=== PATIENT | male | born 1960 | race Caucasian/White ===

== ENCOUNTER 2019-04-19 20:42 | Inpatient (IN) | payer MEDICAID, OTHER ==
[~2019-04-19] VITALS: Ht 170.2 cm; Wt 95.3 kg
[2019-04-19] MEDS ORDERED: CITALOPRAM HBR40 MG PO (20:53)
[2019-04-19] MEDS ORDERED: AMITRIPTYLINE H25 MG PO (20:53)
[2019-04-19] MEDS ORDERED: OMEPRAZOLE20 MG PO (20:54)
[2019-04-19] MEDS ORDERED: LIPITOR40 MG PO (20:54)
[2019-04-19] MEDS ORDERED: GLIPIZIDE ER10 MG PO (20:54)
[2019-04-19] MEDS ORDERED: TYLENOL325 MG PO (20:55)
[2019-04-19] MEDS ORDERED: LEVAQUIN750 MG PO (20:55)
[2019-04-19] MEDS ORDERED: CEFTRIAXONE1 G2 IM (21:59)
--- NOTE | 2019-04-20 00:32 | NUR ---
PT ARRIVED TO THE FLOOR VIA STRETCHER ACCOMPANIED BY [employer] GUARDS X2, PT AOX4, APPROPRIATE, HR TACHY IN 130'S, DR. DONG IN ROOM FOR ASSESSMENT WELL RT IN ROOM. NEBULIZER COMPLETE, PT PLACED ON 2LNC DUE TO O2 SAT OF 91 PER VERBAL ORDER FROM DR. DONG. IV BOLUS OF NS INFUSING PER EMAR, PT AFEBRILE, T: 98.6, PT ORIENTED TO ROOM, REPOSITIONED IN BED FOR COMFORT, CALL LIGHT WITHIN REACH. [employer]I GUARDS REMAIN IN ROOM.
--- NOTE | 2019-04-20 01:15 | NUR ---
REPORT RC'D FROM REGISTERED TRAVEL NURSE NURSE MAYRA. PT IN BED AT [facility] WITH TWO DALLIN GALE. FULL ASSESSMENT TO BE COMPLETED.
--- NOTE | 2019-04-20 01:30 | NUR ---
PT RESTING IN BED. SINUS TACH ON MONITOR. RR 30-40'S, 2L NC, INSPIRATORY AND EXPIRATORY WHEEZE TO BUL AND COARSE, RLL COARSE WITH WHEEZE, LLL DIMINISHED AND TIGHT, NONPRODUCTIVE COUGH. ABD FIRM, BOWEL TONES ACTIVE, DENIES NAUSEA, REPORTS ONGOING DIARRHEA. PT DUE TO VOID. SKIN C/D/I, RESTRAINTS IN PLACE, EOCI GAURDS TO MANAGE. IV SITE PATENT, FLUSHED, WNL, 500 ML BOLUS INFUSING.
--- NOTE | 2019-04-20 02:30 | NUR ---
PT ASSISTED TO BSC. INCREASED WOB AND TACHYPNEA NOTED. PT CONTINUES TO BE DIAPHORETIC. PT ASSSISTED BACK TO BED. LINENS CHANGED. NEW GOWN APPLIED. FAN SET UP AT BEDSIDE. ICE PACK FOR COMFORT. LR INFUSING AT 125.
--- NOTE | 2019-04-20 04:45 | NUR ---
PT C/O OF NEW ONSET OF SHARP LEFT SIDE PAIN. RUB AND HARSH NOISE HEARD TO LLL. WILL DISCUSS FINDINGS WITH PROVIDER.
--- NOTE | 2019-04-20 05:10 | NUR ---
PHONE CALL TO DR. DONG REGARDING LUNG SOUND CHANGE, WOB, AND PAIN. ORDER RC'D FOR MORPHINE 2-4 MG IV Q4P, GIVE TO 2 MG MORPHINE NOW, NORCO 5/325 1 TAB Q4P, READ BACK AND VERIFIED.
--- NOTE | 2019-04-20 05:40 | NUR ---
PT ASSISTED TO BSC, INCREASED WOB AND TACHYPNEA NOTED. PT ASSISTED BACK TO BED AND REPOSTIONED FOR COMFORT. STATES SLIGHT IMPROVMENT WITH MORPHINE DOSE. WILL CONTINUE TO MONITOR.
--- NOTE | 2019-04-20 06:40 | NUR ---
PT STATES MORPHINE DECREASED PAIN FOR SHORT PERIOD OF TIME BUT RETURNED TO 6/10 SHARP LEFT SIDE PAIN. 1 TAB NORCO GIVEN. MEDICATION EDUCATION PROVIDED, PT VERBALIZED UNDERSTANDING, ALL QUESTIONS ANSWERED.
--- NOTE | 2019-04-20 08:46 | NUR ---
PATIENT WAS LAYING IN BED AND COMPLAINING OF LEFT SIDED BACK PAIN. AT 0200 PATIENT RECEIVED 500 MG TYLENOL, AT 0630 PATIENT RECEIVED 5/325 NORCO THAT HELPED PAIN TO A 4/10. PATIENT IS NOW SITTING ON THE EDGE OF THE BED AFTER GOING TO IMAGING DEPARTMENT. PATIENT STATES THAT SITTING UP IN BED HELPS RELIEVE BACK PAIN. GAURDS ARE AT BEDSIDE WITH PATIENT. PATIENT HAS NOT FURTHER NEEDS OR REQUESTS.
--- NOTE | 2019-04-20 09:19 | NUR ---
PATIENT IS SITTING UP AT EDGE OF BED EATING BREAKFAST. PATIENT IS TACHICARDIC AND A LITTLE SHORT OF BREATH BUT OXYGEN SATURATION LEVELS ARE 95%. PATIENT DOES NOT REPORT ANY LIGHTHEADEDNESS OR DIZZINESS. IV FLUIDS RATE WAS REDUCED FROM 125 ML/HR TO 75 ML/HR PER DR. DONG'S ORDERS. PATIENT HAS NO OTHER NEEDS OR REQUESTS.
--- NOTE | 2019-04-20 10:04 | NUR ---
PATIENT USED CALL LIGHT TO GET UP TO BSC. WHEN PATIENT WAS FINISHED, HE POINTED TO THE WIPES BUT WOULD NOT COMMUNICATE WHAT HE WANTED. PATIENT WAS INSTRUCTED TO VERBALIZE WHAT HE WANTED AND TO USE PLEASE AND THANK YOU. PATIENT THEN VERBALLY ASKED FOR THE WIPES AND SAID PLEASE. PATIENT WAS ABLE TO PERFORM PERICARE AND GET BACK INTO BED. ENVIRONMENTAL FIELD TECHNICIAN THEN CAME OUT OF ROOM TO DISCUSS THE INTERACTION. OFFICER SAID SHE WOULD HELP TO MAKE SURE PATIENT VERBALIZES HIS NEEDS. OFFICER SAID SHE WOULD PAY MORE ATTENTION TO THE PATIENT WHILE NURSES AND STAFF ARE IN THE ROOM WITH THE PATIENT.
--- NOTE | 2019-04-20 10:49 | NUR ---
PATIENT COMPLAINED OF LEFT SIDED BACK PAIN. ONE NORCO GIVEN. PATIENT DOES NOT HAVE A FEVER AND IS RESTING IN BED.
--- NOTE | 2019-04-20 11:06 | NUR ---
PATIENT REQUESTED TO USE BSC. PATIENT HAS A SMALL JELLY LIKE YELLOW STOOL. PATIENTIS TACHYCARDIC AND TACHYPNIC. PATIENTS O2 LEVELS ARE 95% ON 2 L O2 VIA OXYMASK. PATIENT IS BACK IN BED AND RESTING.
--- NOTE | 2019-04-20 12:32 | NUR ---
PATIENT ATE ALL OF THE LUNCH AND IS MORE TALKATIVE AND PERSONABLE NOW. PATIENT IS BACK IN BED RESTING. OXYMASK IS IN PLACE AND PATIENT IS GETTING 2L/MIN. PATIENT O2 IS AT 96%.
--- NOTE | 2019-04-20 13:18 | NUR ---
PATIENT HAD A STOOL AND VOID MIXED. TOTAL AMOUNT WAS 300 ML'S. STOOL WAS SMALL BROWN CHUNCKS AND URINE WAS YELLOW.
--- NOTE | 2019-04-20 14:05 | NUR ---
PT RESTING IN BED-O2 MASK ON. PT STATED HE WAS FEEING BETTER NOW WITH MASK. GAVE ENCOURAGEMENT, WILL CONTINUE TO FOLLOW NEEDED. 2 [employer] GUARDS EVER WATCHFUL.
--- NOTE | 2019-04-20 14:21 | NUR ---
PATIENT HAD A MIXED URINATION AND STOOL. STOOL WAS TWO SMALL BROWN CHUNKS. URINE WAS YELLOW. TOTAL AMOUNT 200 ML'S
--- NOTE | 2019-04-20 14:56 | NUR ---
PATIENT STATES PAIN IS DECREASING FROM A 4/10 TO 3/10. THE PATIENT IS SWEATY SO I WIPED OFF THE SWEAT AND PLACED A COOL DAMP RAG ON HIS FOREHEAD. PATIENT HAS NO OTHER NEEDS OR REQUESTS.
--- NOTE | 2019-04-20 15:05 | NUR ---
MED REC COMPLETE
--- NOTE | 2019-04-20 17:22 | NUR ---
PATIENT WAS MINIMALLY INTERACTIVE WITH DR. DONG BUT COMPLAINED OF NOT BEING ABLE TO SLEEP. PATIENT DECLINED TURNING OFF THE TV AND SHUTTING THE BLINDS TO PROMOTE A QUIETER SLEEPING ENVIRONMENT. PATIENT WAS GIVEN ONE UNIT OF INSULIN PER SLIDING SCALE FOR BLOOD GLUCOSE OF 150. PATIENT IS SITTING AT BEDSIDE EATING DINNER WITH GUARDS IN ROOM. PATIENT HAS NO OTHER NEEDS OR REQUESTS.
--- NOTE | 2019-04-20 18:12 | NUR ---
DC'D PATIENT'S IV IN RIGHT WRIST DUE TO CATHETER MIGRATING OUT. PATIENT DIAPHERESIS LOOSENED TAGADERM AND TAPE HOLDING IV IN PLACE.
--- NOTE | 2019-04-20 18:41 | NUR ---
PATIENT WAS COMPLAINING OF 4/10 PAIN. 2 NORCO 5/325 TABS WERE GIVEN TO THE PATIENT. PATIENT HAS NO OTHER NEEDS OR REQUESTS AT THIS TIME.
--- NOTE | 2019-04-20 20:20 | NUR ---
PT WATCHING TV AND TALKING WITH OFFICERS IN ROOM. STATES BACK PAIN 2/10. STATES FEELING BETTER OVERALL. MAIN C/O IS OF NOT BEING ABLE TO SLEEP. WILL BE GIVING HS AMYTRYPTILINE. BREATH TONES ARE SCATTERED EXP WHEEZES AND RHONCHI.
--- NOTE | 2019-04-20 20:57 | NUR ---
BS 147, GIVEN 1 UNIT INSULIN SQ.
--- NOTE | 2019-04-20 22:05 | NUR ---
GIVEN 15MG TORRADOL IV FOR PAIN CONTROL. UP TO BSC TO VOID AND HAVE THICK LIQ STOOL. RR UP TO 30'S WITH EXERTION AND SL LABORED. RECOVERED WHEN BACK IN BED. PT IS JOKING WITH OFFICERS AND STATES PAIN CONTROL IS IMPROVED AND STARTING TO FEEL DROWSY.
--- NOTE | 2019-04-21 00:14 | NUR ---
AWAKE, STATES HASN'T SLEPT. STATES BACK PAIN IS "GOOD". HAS AUDIBLE EXP WHEEZING AND ALSO SCATTERED COARSENESS THROUGHOUT. DENEIES SOB OR NEED FOR NEB TX. CONT TO HAVE [employer] RESTRAINTS IN PLACE, GOOD CMS TO ALL EXTREMITIES. LIGHTS DOWN TO PROMOTE SLEEP.
--- NOTE | 2019-04-21 01:11 | NUR ---
UP TO BSC TO VOID AND HAVE SMALL LIQ BM. STATES NOT REALLY SOB BUT DID NOT RR DID INC TO UPPER 20'S WITH EXERTION. RR BACK TO LOW 20'S WITHIN MINUTES.
--- NOTE | 2019-04-21 02:46 | NUR ---
RESTING, OCC COUGH.
--- NOTE | 2019-04-21 04:38 | NUR ---
CALLED BY PT AT [phone], NEEDING TO GET UP TO BSC. WAS UP FOR ABOUT 20MIN TO VOID AND HAVE SMALL TO MED LIQ BROWN STOOL. BACK TO BED. BREATH TONES ARE DECREASED THROUGHOUT WITH EXP WHEEZES. PT ALSO C/O BACK PAIN 5/10. GIVEN 15MG TORRADOL IV BEFORE NEB TX GIVEN, AFTER NEB COMPLETED PT WAS GIVEN 2 NORCO PO. HAD INCREASED AIR EXCHANGE AFTER NEB AND PT FEELS LIKE HE CAN GET A DEEPER BREATH. TAKING WATER WELL.
--- NOTE | 2019-04-21 05:37 | NUR ---
PT FINALLY SLEEPING. SAT 95%, HR 104.
--- NOTE | 2019-04-21 06:37 | NUR ---
SLEPT LITTLE FINALLY FALLING ASLEEP AROUND 0500. RECIEVED A PRN NEB 0430 FOR DECREASED BREATH TONES, HAD IMPROVED AIR EXCHANGED AFTERWARD. BACK PAIN HAS HAD IMPROVMENT WITH TORRADOL AND NORCO ADMINISTRATION. CONT TO HAVE RESTRIANTS IE ANKLE CUFFS/CHAINS AND WRIST CUFFS AND ABD CHAIN PER EOCI PROTOCOL IN PLACE, GOOD CMS TO HANDS AND FEET.
--- NOTE | 2019-04-21 06:37 | NUR ---
CONT TO SLEEP.
--- NOTE | 2019-04-21 08:29 | NUR ---
PATIENT IS RESTING IN BED CONVERSATING WITH GUARDS. PATIENT STATES PAIN IS 2/10 AND WINCED WHEN STETHASCOPE WAS PLACED ALONG LEFT REAR RIBS. PATIENT DENIES ANY SHORTNESS OF BREATH AND IS INTEREACTIVE WITH STAFF. PATIENT IS UNABLE TO COUGH UP MORE SPUTUM FROM YESTERDAY. USE OF INCENTIVE SPIROMETER AND CORRONET ENCOURAGED. PATIENT HAS BREAKFAST ORDERED AND HAS NO OTHER NEEDS OR REQUESTS.
--- NOTE | 2019-04-21 08:39 | NUR ---
pt sitting up at the bedside eating breakfast at this time. pt able to get up to bedside with no assistance.
--- NOTE | 2019-04-21 09:11 | NUR ---
PT UP AND AMBULATED TO THE BATHROOM WITH STAND BY ASSIST. PT FARIHA ACTIVITY WELL.
--- NOTE | 2019-04-21 09:24 | NUR ---
PATIENT MIXED URINE AND STOOL IN BATHROOM HAT. UNABLE TO GATHER A SAMPLE. TOTAL AMOUNT 450 ML
--- NOTE | 2019-04-21 09:25 | NUR ---
PATIENT AMBULATED FROM BATHROOM TO CHAIR. OXYGEN SATURATION LEVELS AT 95% ON ROOMAIR. PATIENT TOLERATED WELL AND IS SITTING COMFORTABLY IN CHAIR. PATIENT HAS NO OTHER REQUESTS OR NEEDS AT THIS TIME.
--- NOTE | 2019-04-21 10:42 | NUR ---
PATIENT IS SITTING IN CHAIR RESTING AND DOZING OFF TO SLEEP. PATIENT DESCRIBES PAIN 2 OUT OF 10. PATIENT WAS GIVEN 15MG KETORALAC. PATIENT HAS NO OTHER NEEDS OR REQUESTS. GUARDS ARE IN THE ROOM.
--- NOTE | 2019-04-21 12:10 | NUR ---
PATIENT AMBULATED TO BATHROOM. TOLERATED ACTIVITY WELL AND REPORTS PAIN AT 1/10. PATIENT IS BACK IN CHAIR AND RESTING. PATIENT ENCOURAGED TO USE INCENTIVE SPIROMETER AND CORRONET. PATIENT OXYGEN SATURATION LEVELS WERE 95% WHEN SEATED BACK IN CHAIR. WITHIN 1 MINUTE OXYGEN SATURATION LEVELS WERE 98%. LUNCH HAS BEEN ORDERED FOR PATIENT AND THERE ARE NO OTHER REQUESTS OR NEEDS.
--- NOTE | 2019-04-21 12:59 | NUR ---
PATIENT'S MAINTENANCE FLUIDS WAS DC'D PER DR. DONG'S ORDERS. PATIENT IS SITTING IN THE CHAIR EATING LUNCH WITH GUARDS AT BEDSIDE.
--- NOTE | 2019-04-21 13:28 | NUR ---
PT IN CHAIR, O2 MASK OFF. PT STATED HE IS MUCH BETTER TODAY AND GLAD HE CAN BE IN CHAIR INSTEAD OF THE BED. [employer] GUARDS BOTH STANDING OVER PT. EXTENDED A BLESSING WILL FOLLOW NEEDED
--- NOTE | 2019-04-21 14:08 | NUR ---
PATIENT COMPLAINED OF HEADACHE STARTING. RATED PAIN AT 2/10. 500 MG TYLENOL GIVEN. PATIENT HAD NO OTHER PAIN AND DENIED SHORTNESS OF BREATH. PATENT IS SITTING UP IN THE CHAIR WATCHING TV WITH GUARDS IN THE ROOM. PATIENT HAD NO OTHER REQUESTS OR NEEDS.
--- NOTE | 2019-04-21 16:30 | NUR ---
PATIENT IS LAYING IN BED. WHEN SAT FORWARD TO LISTEN TO POSTERIOR LUNGS PATIENT BEGAN PURSED LIP BREATHING WHEN LAYING BACK INTO BED. PATIENT DENIED SHORTNESS OF BREATH. O2 SATURATION LEVELS WERE 91% ON ROOMAIR. PUT ON 2L OXYGEN VIA NASAL CANNULA AND SATS CAME UP TO 95%. PATIENT ORAL TEMPERATURE 101.1 DEGREES. PATIENT GIVEN 15MG TORADOL, COOL RAG ON FOREHEAD, AND FAN TURNED ON. PATIENT WAS REMINDED TO USE INCENTIVE SPIROMETER AND CORRONET TEN TIMES PER HOUR. PATIENT STATED UNDERSTANDING AND HAS NO FURTHER REQUESTS OR NEEDS.
--- NOTE | 2019-04-21 19:39 | NUR ---
REPORT RC'D FROM STUDENT NURSE MAXIMINO. REPORTS PAIN WELL MANAGED, CONTINUES TO HAVE LOOSE STOOL, SALINE LOCKED, GOOD PO INTAKE, AND FEVER OF 101.1 EARLIER IN SHIFT AND TYLENOL GIVEN. PT IN BED WITH 2 GAURDS AT BEDSIDE. FULL ASSESSMENT TO BE COMPLETED.
--- NOTE | 2019-04-21 20:03 | NUR ---
PT AAOX4 AND RESPONDING APPROPRIATELY. PT MORE INTERACTIVE AND PLEASANT FROM ADMIT, STATES HE IS "FEELING MUCH BETTER." PT REMAINS SINUS TACH, HR LOW 100'S AT REST. RR 24-28, DYSPNEA ON EXERTION, EXPIRATORY WHEEZE THROUGHOUT ALL LOBES, BUL CLEAR, BLL DIMINISHED, ON ROOM AIR, PRODUCTIVE COUGH WITH THICK GREEN/BLOODY SPUTUM, ENCOURAGED I/S USE. ABD FIRM, BOWEL TONES HYPERACTIVE, DENIES NAUSEA. SKIN ASSESSMENT COMPLETED AROUND RESTRAINTS, C/D/I, WNL, EOCI GAURDS TO MANAGE RESTRAINTS. STATES PAIN WELL MANAGED. IV SITE PATENT, WNL, SALINE LOCKED. R/T IN ROOM FOR [facility].
--- NOTE | 2019-04-21 22:30 | NUR ---
CALL LIGHT ANSWERED, PT SBA TO RESTROOM, HR INCREASED TO 120'S, RR 30'S, 94% ON ROOM AIR. VOIDED 300 MLS SRIKANTH URINE, ENCOURAGE PO INTAKE, WATER REFILLED. LINENS CHANGED. PARTIAL BATH COMPLETED. NEW GOWN APPLIED, SKIN ASSESSED AROUND RESTRAINTS, WNL. ASSISTED BACK TO BED, HR LOW 100'S, RR 20'S, REMAINS 94% ON ROOM AIR. TORADOL GIVEN FOR CONTINUED 3/10 BACK PAIN. DENIES OTHER NEEDS. WATER AND CALL LIGHT WITHIN REACH. SHAHLA AT BEDSIDE.
--- NOTE | 2019-04-22 00:25 | NUR ---
NO ACUTE CHANGES TO ASSESSMENT. PT PLACED ON 1L NC WHILE RESTING DUE TO DESAT. ENCOURAGED REST. DENIES PAIN AT THIS TIME. DENIES OTHER NEEDS. CALL LIGHT AND WATER WITHIN REACH. GAURDS AT BEDSIDE.
--- NOTE | 2019-04-22 02:00 | NUR ---
CALL LIGHT ANSWERED, PT SBA TO BATHROOM, GAIT STEADY, RR 25-30, HR 120'S. PT AFEBRILE BUT DIAPHORTIC, LINENS CHANGED. SBA BACK TO BED. C/O 06/09 BACK PAIN, 2 TAB NORCO GIVEN. DENIES OTHER NEEDS. CALL LIGHT WITHIN REACH. SHAHLA AT BEDSIDE.
--- NOTE | 2019-04-22 04:00 | NUR ---
PT RESTING WITH EYES CLOSED, RESPIRATIONS EVEN AND UNLABORED, NO ACUTE DISTRESS. FULL ASSESSMENT HELD AT THIS TIME.
--- NOTE | 2019-04-22 06:00 | NUR ---
CALL LIGHT ANSWERED, PT ASSISTED TO RESTROOM, TOLERATED WELL. SEMI SOFT GREEN BM NOTED. ASSISTED BACK TO BED. NO ACUTE CHANGES TO ASSESSMENT. C/O 6/10 BACK PAIN PRN MEDICATION GIVEN. DENIES OTHER NEEDS. CALL LIGHT WITHIN REACH.
--- NOTE | 2019-04-22 06:41 | NUR ---
PT SLEPT IN SMALL INTERVALS THROUGHOUT NIGHT. PAIN WELL MANAGED. HR 90-100'S AT REST AND 120'S WITH EXERTION. PT TOLERATING ROOM AIR MOST OF NIGHT, 1L WHILE RESTING, COUGH CONTINUES TO BE PRODUCTIVE, EXPIRATORY WHEEZE IN BUL AND DIMINISHED BLL. ABD FIRM, BOWEL TONES HYPERACTIVE, NO NAUSEA, BM X2 WITH LAST STOOL BEING SEMI SOFT. SKIN C/D/I, RESTRAINTS MANAGED BY EOCI. SALINE LOCKED AND TAKING IN GOOD PO INTAKE. VOIDING QS. AFEBRILE. PT STATES FEELING MUCH IMPROVED AND APPEARS MORE INTERACTIVE.
--- NOTE | 2019-04-22 08:11 | NUR ---
PATIENT WAS SLEEPING IN BED BUT AWOKE WHEN SPOKEN TO. PATIENT WAS RESPONSIVE AND COOPERATIVE. DENIES PAIN AND SHORTNESS OF BREATH. PATIENT DOES NOT HAVE A FEVER AND IS SITTING UP AT THE BEDSIDE EATING BREATHFAST. BLOOD GLUCOSE RANGE DID NOT NEED INSULIN CORRECTION PER SLIDING SCALE. PATIENT HAS NO OTHER NEEDS OR REQUESTS.
--- NOTE | 2019-04-22 10:01 | NUR ---
PATIENT AMBULATED TO BATHROOM. VERY DYSNIPTIC WITH LABORED BREATHING. AFTER STOOLING PATIENT AMBULATED BACK TO BED AND HAD PURSED LIPPED BREATHING. O2 SATURATION WAS 97% ON ROOMAIR ONCE BACK IN BED. PATIENT TO BE TRANSFERED TO ROOM 125. LAB IN ROOM GATHERING BLOOD DRAW. GUARDS ARE IN ROOM AND PATIENT HAS CALL LIGHT IN REACH. PATIENT HAS NO FURTHER REQUESTS OR NEEDS.
--- NOTE | 2019-04-22 11:28 | NUR ---
PATIENT REPORT GIVEN TO MARCIAL BARRIOS ON MED/SURG UNIT. PATIENT TRANSPORTED VIA BED, ALL BELONGINGS TRANSPORTED WITH PATIENT.
--- NOTE | 2019-04-22 11:39 | NUR ---
New pt to the floor. Pt awake, alert and oriented x3. Pt reports he's sob "a bit" at rest. Pt is on 1L oxygen, 02 sat level is 95%. Two correctional officers at bedside. Pt oriented to room and call light. Pt has no needs at this time. Personal supplies and call light within reach. No needs.
--- NOTE | 2019-04-22 12:36 | NUR ---
Ibuprofen 400mg po admin for reports of 5/10 left rib pain. Pt reports pain gets worse when he coughs. Pt denies chest pain. Tele intact; hr at this time is 114bpm sitting up at bedside eating lunch.
--- NOTE | 2019-04-22 14:11 | NUR ---
ASSUMED CARE FROM DENIS CEJA. PT LYING ON BACK IN BED WATCHING TV, 4 PO[address] SHACKLE RESTRAINTS IN PLACE, SKIN GROSSLY INTACT. TWO CORRECTIONAL OFFICERS AT BEDSIDE. PT DENIES PAIN OR NAUSEA. REPORTS THAT IBUPROFEN HELPED WITH BACK PAIN. ALERT AND ORIENTED. DENIES SOB OR OTHER CONCERNS AT THIS TIME. CALL LIGHT WITHIN REACH.
--- NOTE | 2019-04-22 15:08 | NUR ---
PT AMB TO RESTROOM WITH MINIMAL ASSIST. HAD DADA BLOOD WITH BM. NOTIFIED DR. DONG. PT SOB WITH AMB. DESATTED TO 88% ON RA, QUICKLY RECOVERED WITHIN A MINUTE TO 94% ON RA. IV VANCO STARTED, IV IN LEFT HAND FLUSHES EASILY. PT BACK TO BED. GIVEN FRESH ICE WATER. CALL LIGHT WITHIN REACH. 2 CORRECTIONAL OFFICERS AT BEDSIDE.
--- NOTE | 2019-04-22 17:37 | NUR ---
PT SITTING UP IN BED WITH DINNER AT BEDSIDE. PT STATES "I WANNA EAT IT BUT I CAN'T CATCH MY BREATH." NOTED TO HAVE SLIGHTLY LABORED BREATHING, SATS 93% ON RA, LUNGS WHEEZY AND COURSE. REPORTS PAIN NOT CONTROLLED WITH IBUPROFEN. NOTIFIED DR. DONG. RECIEVED ORDER FOR KYARA AND SILVIA.
--- NOTE | 2019-04-22 18:01 | NUR ---
PT RECIVED PRN NEB TREATMENT FOR C/O SOB. MEDICATED WITH PRN NORCO FOR 5/10 BACK PAIN.
--- NOTE | 2019-04-22 19:00 | NUR ---
SHIFT REPORT RECIEVED FROM DAYSHIFT MARCIAL JEFFERSON AT BEDSIDE. PT AWAKE AND RESTING IN BED, RR WNL. NO SIGNS OF DISTRESS NOTED. GUARDS X2 IN ROOM. RESTRAINTS X4 IN PLACE[facility] PT SALINE LOCKED AT THIS TIME. DENIES NEEDS OR CONCERNS, CALL LIGHT IN REACH.
--- NOTE | 2019-04-22 21:45 | NUR ---
ASSESSMENT COMPLETE, SCHEDULED MEDICATIONS GIVEN (SEE EMAR). PT REPORTS 4-5/10 PAIN AFTER COUGHING. PRN NORCO ADMINISTERED. VSS, PT ON RA. PT HAD HEAVY EPISODE OF COUGHING, RT JENSEN IN ROOM. O2 SAT WNL, COURSE LUNG SOUNDS THROUGHOUT WITH UPPER AIRWAY CONGESTION. SPOKE TO DR DONG REGARDING PT'S INCREASE IN COUGH, PRN ROBUTUSSIN ORDERED AND GIVEN. PT A/OX4. IV ABX INFUSING PER MD ORDERS, IV SITE WNL. FRESH WATER AT BEDSIDE, NO ADDITIONAL NEEDS NOTED. CALL LIGHT IN REACH, GUARDS X2 IN ROOM. RESTRAINTS X4 ALSO IN PLACE.
--- NOTE | 2019-04-22 21:46 | NUR ---
VITALS AND I&OS DONE AND CHARTED. FRESH ICE WATER GIVEN. BEDSIDE TABLE AND CALL LIGHT IN REACH.
--- NOTE | 2019-04-23 00:09 | NUR ---
PT RESTING IN BED, EYES CLOSED, RR WNL. NO DISTRESS NOTED. PT APPEARS COMFORTABLE, TELE #[address], SINUS TACHY, HR 108. GUARDS IN ROOM, EOCI RESTRAINTS IN PLACE. CALL LIGHT IN REACH.
--- NOTE | 2019-04-23 01:11 | NUR ---
PT RESTING IN BED, STATES THE COUGHING HAS "SUBSIDED". PT APPEARS COMFORTABLE, O2 SAT 91% ON RA, HR 107, SINUS TACHY. TELE #1. NO NEEDS AT THIS TIME, CALL LIGHT IN REACH.
--- NOTE | 2019-04-23 02:10 | NUR ---
ASSESSMENT COMPLETE, NO NEW CONCERNS OR CHANGES. PT A/OX4, CPOX IN PLACE. O2 SAT 90-91% ON RA. PT DNEIES SOB AT REST. NO DISTRESS NOTED. SCHEDULED VANCO INFUSING, IV SITE WNL. PT DENIES PAIN AT INFUSION SITE. RESTRAINTS IN PLACE, GUARDS X2 IN ROOM. PT DENIES ADDITIONLA NEEDS, CALL LIGHT IN REACH.
--- NOTE | 2019-04-23 05:30 | NUR ---
PROVIDED EOCI MARCIAL ARREDONDO WITH UPDATE REGARDING PT.
--- NOTE | 2019-04-23 06:35 | NUR ---
VSS AND RECORDED ALONG WITH I&O'S. PT RESTING IN BED, RR WNL, PT ON RA.DENIES ADDITIONAL NEEDS, RESTRAINTS IN PLACE, GUARDS X2 IN ROOM.
--- NOTE | 2019-04-23 07:39 | NUR ---
REPORT RECIEVED FROM JAMIE CEJA. PT SLEEPING AT THIS TIME, GUARDS PRESENT IN THE ROOM. TELE READS ST AT 107 AND PULSE OX ON ROOM AIR IS 90%. CALL LIGHT WITHIN REACH.
--- NOTE | 2019-04-23 08:03 | NUR ---
PT RESTING IN BED WITH NO COMPLAINTS OF PAIN OR SOB AT THIS TIME. SAT 94% ON ROOM AIR AT THIS TIME.
--- NOTE | 2019-04-23 08:15 | NUR ---
PT ASSISTED TO THE BR AND HE VOIDED AND HAD A MODERATE SIZED GREEN COLORED LOOSE BM WITH NO NOTED BLEEDING.
--- NOTE | 2019-04-23 08:16 | NUR ---
PATIENT RESTING IN BED. RN AND TWO GUARDS IN ROOM. PATIENT GOES TO USE BATHROOM. ONE PERSON ASSISTING. LINENS CHANGED. PATIENT BACKS TO BED. SETS UP TABLE FOR BREAKFAST. CALL LIGHT WITHIN REACH. NO OTHER NEEDS AT THIS TIME
--- NOTE | 2019-04-23 09:16 | NUR ---
PATIENT RESTING IN BED. RN AND TWO GUARDS IN ROOM. VITAL SIGNS AND I&O DONE. CALL LIGHT WITHIN REACH. NO OTHER NEEDS AT THIS TIME
--- NOTE | 2019-04-23 10:29 | NUR ---
CALL LIGHT ANSWERED. PATIENT USING BATHROOM. TWO GUARDS IN ROOM. PATIENT BACKS TO BED. ONE PERSON ASSISTING. CALL LIGHT WITHIN REACH. NO OTHER NEEDS AT THIS TIME
--- NOTE | 2019-04-23 10:52 | NUR ---
PT RESTING ON THE BEDSIDE AWAITING HIS CT AT THIS TIME. PT DENIES ANY NEW PROBLEMS AT THIS TIME.
--- NOTE | 2019-04-23 11:42 | NUR ---
PT RETURNED FROM CT ABOUT [address] DONG IN THE ROOM ASSESSING THE PT AT THIS TIME. PT STATES HIS PAIN IS A 5/10 ON HIS LEFT SIDE OF HIS BACK. SAT IS 92% ON ROOM AIR AND HIS HR IS 110.
--- NOTE | 2019-04-23 12:58 | NUR ---
PT RESTING IN HIS BED WITH NO NEW COMPLAINTS.
--- NOTE | 2019-04-23 13:09 | NUR ---
PATIENT RESTING IN BED. TWO GUARDS IN ROOM. VITAL SIGNS AND I&O DONE. CALL LIGHT WITHIN REACH. NO OTHER NEEDS AT THIS TIME
--- NOTE | 2019-04-23 14:46 | NUR ---
PT RESTING IN HIS BED, GUARDS AT BEDSIDE. PT STATES HIS PAIN IS CONTROLED AT THIS TIME. SAT 93% ON ROOM AIR.
--- NOTE | 2019-04-23 16:50 | NUR ---
HR 98, SAT 91% ON ROOM AIR. PT DENIES ANY SOB OR PAIN AT THIS TIME.
--- NOTE | 2019-04-23 17:58 | NUR ---
PATIENT RESTING IN BED. TWO GUARDS IN ROOM. VITAL SIGNS AND I&O DONE. IV WRAPPED. SETS UP BATHROOM FOR SHOWER. CALL LIGHT WITHIN REACH. NO OTHER NEEDS AT THIS TIME
--- NOTE | 2019-04-23 18:47 | NUR ---
CALL LIGHT ANSWERED BY THIS NURSE D/T "MACHINE BEEPING". PT FOUND TO HAVE O2 AT 85% ON RA. IS USED WITH NO RESULTS. MACHINE WITH GOOD WAVEFORM. 1L NC PLACED WITH SATURATIONS INCREASING TO 88%. INCREASED TO 2L NC. SATURATION AT 91% CURRENTLY. NO FURTHER NEEDS. CALL LIGHT IN REACH. 2 GAURDS AT BEDSIDE. [address] .
--- NOTE | 2019-04-23 18:51 | NUR ---
SAT ON 2L IS 93% AT THIS TIME. THE PT'S SAT HAD STAYED IN THE LOW 90'S ALL DAY AND HAD INTO THE 80'S PER PAUL CEJA AFTER HIS SHOWER. IS GIVEN TO THE PT AND HE WAS ENCOUARGED TO USE IT WHICH HE DID AT THIS TIME. TEMP 98.9. EXP WHEEZES NOTED ON THE LEFT LOBES WITH COARSE BASE ON THE LEFT WELL. THE PT DENIES SOB AT THIS TIME.
--- NOTE | 2019-04-23 18:59 | NUR ---
RT CALLED FOR THE PRN NEB TREATMENT. DR DONG UPDATED TO THE PT'S RESP STATUS.
--- NOTE | 2019-04-23 21:00 | NUR ---
PATIENT IN BED IN CORRECTIONAL RESTRAINTS WATCHING TV WITH 2 [employer] OFFICERS.
--- NOTE | 2019-04-23 22:51 | NUR ---
PTs VS and I&Os complete. Nothing further needed at this time.
--- NOTE | 2019-04-23 23:04 | NUR ---
BINDER CUTTER ROUNDING NOTE. PT RESTING IN BED WITH GUARDS AT BEDSIDE X2. EDUCATION PROVIDED REGARDING CPOX. PT DENIES FURTHER NEEDS. WHITE BOARD UPDATED. CALL LIGHT IN REACH.
--- NOTE | 2019-04-24 01:00 | NUR ---
PATIENT RESTING QUIETLY EYES CLOSED RESPIRATIONS EVEN. REMAINS ON 2L/NC WITH PULSE OX89-90%.
--- NOTE | 2019-04-24 03:23 | NUR ---
PATIENT JUST STOOD AND VOIDED 250MLS WITH 3 PERSON ASSIST. PATIENT RESTING QUIETLY NOW.
--- NOTE | 2019-04-24 04:10 | NUR ---
PATIENT RESTING QUIETLY WITH EYES CLOSED, APPEARS IN NO DISTRESS, 2 [employer] OFFICERS AT BEDSIDE.
--- NOTE | 2019-04-24 06:29 | NUR ---
SATS 89-90% ON 2L/NC AND UP TO THE BATHROOM WITH OFFICERS. TAKING PO FLUIDS WELL. IV WNL AND SALINE LOCKED EXCEPT FOR ANTIBIOTICS. LUNGS DIM BUT CLEAR EXCEPT FOR JONO EXP.WHEEZE.
--- NOTE | 2019-04-24 07:42 | NUR ---
BEDSIDE REPORT RECEIVED FROM DALJIT CEJA. PT DENIES ANY NEW PROBLEMS OR SOB AT THIS TIME. PT REMAINS ON O2. GUARDS AT BEDSIDE. CALL QUICK WITHIN REACH.
--- NOTE | 2019-04-24 08:25 | NUR ---
PATIENT SITTING UP IN BED FOR BREAKFAST. 2 GUARDS IN ROOM. CALL LIGHT IN REACH. NO FURTHER NEEDS AT THIS TIME.
--- NOTE | 2019-04-24 08:29 | NUR ---
PT RESTING IN BED WITH NO COMPLAINTS OF PAIN OR SOB AT THIS TIME. DR DONG TO BEDSIDE CHECKING UP ON THE PT. SAT 90% ON 2L VIA NC AND HR IN THE 90'S AND SINUS. TELE DC'D AT THIS TIME.
--- NOTE | 2019-04-24 11:21 | NUR ---
PT RESTING IN BED AND CONTINUES TO DENIE ANY SOB. SAT ON 2L VIA NC IS 92% AND HR 90.
--- NOTE | 2019-04-24 13:06 | NUR ---
PT DENIES ANY PROBLEMS OR PAIN OTHER THEN A MARCUM. PT MEDICATED ORDERED, SEE EMAR.
--- NOTE | 2019-04-24 13:13 | NUR ---
PT HAD A LARGE SOFT BM WITH A SMALL AMOUNT OF RED COLORED BLOOD. DR DONG NOTIFIED.
--- NOTE | 2019-04-24 13:21 | NUR ---
ATTEMPTED TO SIT THE PT UP AT THE BEDSIDE AND SHE WAS UNABLE TO HOLD HERSELF UP AND JUST WANTED TO LAY BACK DOWN. PT HAS NOT BEEN OUT OF BED SINCE HER SURGERY.
--- NOTE | 2019-04-24 14:11 | NUR ---
PATIENT IN BED WATCHING TV. 2 GUARDS IN ROOM. CALL LIGHT IN REACH. NO FURTHER NEEDS AT THIS TIME.
--- NOTE | 2019-04-24 14:39 | NUR ---
PT WAS SLEEPING AND AWOKE TO VOICE. PT STATES HE IS DOING MUCH BETTER AND STATES HIS MARCUM IS NOW A 2 WHICH IS ACCEPTABLE TO HIM. SAT 90% ON 2L AND HR 94.
--- NOTE | 2019-04-24 16:14 | NUR ---
PT AMBULATED TO THE BR WITH ASSIST AND HAD A SMALL SOFT STOOL WITH A SCANT OF RED COLORED BLOOD NOTED. PT DENIES ANY NEW PROBLEMS AT THIS TIME. SAT IS 95% ON 2L AT THIS TIME.
--- NOTE | 2019-04-24 18:05 | NUR ---
PATIENT IN BED WATCHING TV. 2 GUARDS IN ROOM. CALL LIGHT IN REACH. NO FURTHER NEEDS AT THIS TIME.
--- NOTE | 2019-04-24 18:27 | NUR ---
PT WATCHING TV AND DENIES ANY NEW PROBLEMS. SAT 94% ON 2L AND HR 102.
--- NOTE | 2019-04-24 21:00 | NUR ---
PATIENT WATCHING TV WITH 2 [employer] OFFICERS. PATIENT REMAINS IN STANDARD BELLY CHAIN,CUFFS, AND SHACKLES. NO NEEDS AT THIS TIME. CALL LIGHT IN REACH.
--- NOTE | 2019-04-24 22:57 | NUR ---
APPARATUS ENGINEERING TECHNOLOGIST ROUNDING NOTE. PT RESTING IN BED AWAKE WITH GUARDS AT BEDSIDE X 2. PT REQUESTS PRN PAIN MEDICATION AND COUGH SYRUP. PRIMARY RN NOTIFIED AND HEADED TO PT'S ROOM. PT DENIES OTHER NEEDS. CALL LIGHT IN REACH. WHITE BOARD UPDATED.
--- NOTE | 2019-04-24 23:00 | NUR ---
DONE WITH EVENING ASSESSMENT, PM MEDS GIVEN. PATIENT GOT 1 NORCO FOR 3/10 LT SIDE PAIN. WATER REFILLED CALL LIGHT IN REACH. 2 OFFICERS PRESENT.
--- NOTE | 2019-04-25 01:00 | NUR ---
PATIENT SATS IN THE 90'S ON 2L/NC, RESTING QUIETLY, EYES CLOSED, 2 OFFICERS PRESENT.
--- NOTE | 2019-04-25 03:00 | NUR ---
PATIENT STATUS UNCHANGED FROM LAST CHECK. 2 [employer] OFFICERS AT BED SIDE. CALL LIGHT IN REACH.
--- NOTE | 2019-04-25 05:00 | NUR ---
PATIENT RESTED MOST OF THE NIGHT EYES CLOSED, RESPIRATIONS REGULAR, SATS REMAINED IN THE 90'S ON 2L/NC. ONLY ONE PAIN PILL GIVEN AT EVENING MED PASS. PATIENT VOIDING QUANTITY SUFFICIENT. TO [employer] OFFICERS HAVE REMAINED AT BEDSIDE AROUND THE CLOCK.
--- NOTE | 2019-04-25 07:27 | NUR ---
REPORT RECEIVED FROM DALJIT CEJA.
--- NOTE | 2019-04-25 08:57 | NUR ---
SLIGHT BRUISING NOTED UNDER THE DRESSING. SITE FLUSHES.
--- NOTE | 2019-04-25 09:03 | NUR ---
ON ARRIVAL TO THE PT'S ROOM HIS O2 WAS OFF AND HIS SAT WAS 90-91. THE GUARDS STATES HE JUST TOOK IT OFF AND WHILE I WAS STILL IN THE ROOM HIS SAT DECREASED TO 87%. O2 REPLACED AT 2L AND HIS SAT INCREASED TO 92%. PT DENIES ANY SOB AT THIS TIME. HE COMPLAINTS OF A MARCUM RATED AT A 2/10, HE HAS NO OTHER COMPLAINTS AT THIS TIME.
[2019-04-25] MEDS ORDERED: DOXYCYCLINE HY100 MG PO (10:22)
[2019-04-25] MEDS ORDERED: METOPROLOL TART50 MG PO (10:22)
--- NOTE | 2019-04-25 12:18 | NUR ---
DC INSTRUCTIONS GIVEN TO THE PT AND COPIES SENT WITH THE GUARDS. IV SITE DC'D TIP INTACT. VSS WITH A SAT OF 94% ON 2L. PT GETTING CHANGED AND READY FOR TRANSPORT AT THIS TIME.
--- NOTE | 2019-04-25 12:35 | NUR ---
PT BEING DC'D WITH A PORTABLE O2 CONSINTRATOR FROM THE HALFWAY.
== END 2019-04-25 12:55 | disposition home or self-care (01) | DRG 871 ==
LOC: ED 20:42 → CCU 20:44 → MS 04-22 11:25
PROVIDERS: ADMIT Internal Medicine
DX: A41.02 Sepsis due to Methicillin resistant Staphylococcus aureus (principal); J15.212 Pneumonia due to Methicillin resistant Staphylococcus aureus; E87.1 Hypo-osmolality and hyponatremia; E83.42 Hypomagnesemia; E05.90 Thyrotoxicosis, unspecified without thyrotoxic crisis or storm; K64.9 Unspecified hemorrhoids; E11.9 Type 2 diabetes mellitus without complications; I10 Essential (primary) hypertension; E78.5 Hyperlipidemia, unspecified; K21.9 Gastro-esophageal reflux disease without esophagitis; F41.9 Anxiety disorder, unspecified; R09.02 Hypoxemia; Z87.891 Personal history of nicotine dependence; Z88.5 Allergy status to narcotic agent; Z79.84 Long term (current) use of oral hypoglycemic drugs; Z79.899 Other long term (current) drug therapy
CPT/HCPCS: 36415; 71045; 71046; 71260; 80048; 80053; 80202; 83605; 83735; 84439; 84443; 85025; 87040; 87070; 87077; 87186; 87205; 94640; 94667; 94668; 94761; 96374; 99285-25; J0696; J1650; J1815; J1885; J1956; J2270; J3370; J3475; J7030; J7060; J7120; Q9967

== ENCOUNTER 2023-01-22 03:12 | Inpatient (IN) | payer OTHER ==
[~2023-01-22] VITALS: Ht 152.4 cm; Wt 82.2 kg
[~2023-01-22 03:12] MED LIST: AMITRIPTYLINE H25 MG PO; CEFTRIAXONE1 G2 IM; CITALOPRAM HBR40 MG PO; DOXYCYCLINE HY100 MG PO; GLIPIZIDE ER10 MG PO; LEVAQUIN750 MG PO; LIPITOR40 MG PO; METOPROLOL TART50 MG PO; OMEPRAZOLE20 MG PO; TYLENOL325 MG PO
[2023-01-22] MEDS ORDERED: COZAAR50 MG PO (04:27)
[2023-01-22] MEDS ORDERED: MELATONIN1 MG PO (04:28)
[2023-01-22] MEDS ORDERED: POTASSIUM CHLO10 MEQ PO (04:30)
[2023-01-22] MEDS ORDERED: METFORMIN HCL1000 M1 PO (04:30)
[2023-01-22] MEDS ORDERED: OMEPRAZOLE20 MG PO (04:30)
[2023-01-22] MEDS ORDERED: CRESTOR20 MG PO (04:31)
[2023-01-22] MEDS ORDERED: VITAMIN D325 MC2 PO (04:32)
[2023-01-22] MEDS ORDERED: NASACORT10.8 ML NAS (04:33)
[2023-01-22] MEDS ORDERED: VENTOLIN HFA18 GM INH (04:35)
--- NOTE | 2023-01-22 09:00 | NUR ---
62 YEAR OLD MALE PATIENT ADMITTED TO CCU VIA STRETCHER UNDER DR. YEAGER WITH DX OF PNEUMONIA. PATIENT STATES HE HAS BEEN ILL FOR APPROX 2 DAYS, HOWEVER DIDN'T SEEK MEDICAL ATTENTION UNTIL THIS AM AT APPROX 0200 AT [facility]. PATIENT HAS HX OF PNEUMONIA AND DIABETIS. CURRENTLY IS ON O2 AT 2 LITERS. USES CPAP AT HOME SINCE DECEMBER OF THIS YEAR. PATIENT RECIEVED NEBS, TORDOL,IV ABX IVF IN ER. ON ADMIT TO CCU RR-36 WITH INCREASED WOB. AMBULATED TO BR TO VOID. IS STABLE ON FEET. ADMISSION PROCESS STARTED.
--- NOTE | 2023-01-22 10:00 | NUR ---
Spoke with pt and he does not have any CM needs. He does not use any DME, other than his CPAP. Will return to [facility] on dc in the care of correctional officers.
[2023-01-22] MEDS ORDERED: FENOFIBRATE145 MG PO (10:26)
[2023-01-22] MEDS ORDERED: LIDOCAINE35.44 GM TOP (10:34)
--- NOTE | 2023-01-22 10:35 | NUR ---
CONTACTED [facility] RESIDENCE LEASING AGENT IN REFERENCE TO PATIENT'S CPAP. STATED SHE IS WORKING ON GETTING IT TO HOSPITAL.
--- NOTE | 2023-01-22 11:50 | NUR ---
DR. YEAGER UPDATED ON PATIENT STATUS. IS AWARE OF WOB, RR, HR, ORDERS RECIEVED FOR ABG, BIPAP, FLUID BOLUS. NS HUNG PER BOLUS ORDER. RT NOTIFIED REGARDING ABG/BIPAP. PATIENT IS AWARE OF TREATMENT PLAN.
--- NOTE | 2023-01-22 12:12 | NUR ---
ABG RESULTS, PH-7.40, PCO2-30, PO2-64. NOW ON BIPAP 11/07,RR-12, FIO2-40%. 5 UNITS SQ INSULIN GIVEN FOR ACCUCHECK 239. LUNCH HELD FOR NOW. OFFICERS ARE IN ROOM.
--- NOTE | 2023-01-22 12:21 | NUR ---
PT PROTECTING OWN AIRWAY AT THIS TIME WOB OK.
--- NOTE | 2023-01-22 12:53 | EKG ---
[facility] [address] [place] [address] Signed Sinus tachycardia Otherwise normal ECG No previous ECGs available Confirmed by Binu Yeager MD () on 01/22/2023 12:53:38 PM Electronically Signed By: BINU YEAGER MD 01/22/23 1253 PATIENT NAME: VENU LEI Electrocardiogram DATE OF : 62 PHYSICIAN: BINU YEAGER MD REPORT #: [id number] REPORT IS CONFIDENTIAL AND NOT TO BE RELEASED WITHOUT AUTHORIZATION
--- NOTE | 2023-01-22 13:00 | NUR ---
RESTING ON BIPAP, WITH HOB ELEVATED. RESP RATE REMAINS IN 40'S. BOLUS NS COMPLETE.
--- NOTE | 2023-01-22 13:45 | NUR ---
JAYNE GARY ORDERED AND HUNG.
--- NOTE | 2023-01-22 14:10 | NUR ---
PATIENT REQUESTED BIPAP TAKEN OFF. REMOVED BIPAP, PLACED ON 2LNC. O2 SATS REMAIN 93-94%, PATIENT RR 40 AND HR 127. PATIENT STATES HE IS COMFORTABLE.
--- NOTE | 2023-01-22 14:42 | NUR ---
PT SAT AT BEDSIDE TO VOID, HEART RATE INTO THE 140S. RESPIRATIONS IN THE 40S WITH MINOR ACTIVITY. AXILLARY TEMPERATURE OF 102.7. PT COMPLAINS OF GENERALIZED PAIN NORCO AND TYLENOL GIVEN (SEE EMAR). VANCOMYCIN, IV FLUIDS, AND ZOSYN INFUSING. PT HEART RT 130 AT REST. RESPIRATIONS LABORED. PT COUGHING UP THICK SPUTUM. GAURDS REMAIN AT BEDSIDE. WILL CONTINUE TO CLOSELY MONITOR.
--- NOTE | 2023-01-22 15:09 | NUR ---
MORPHINE 2 MG IV GIVEN FOR RESP COMFORT.
--- NOTE | 2023-01-22 16:00 | NUR ---
MORPHINE 2 MG IV REPEATED FOR RESP COMFORT. ASSESSMENT COMPLETE. REMAINS ON BIPAP AT 40% FIO2.
--- NOTE | 2023-01-22 16:30 | NUR ---
DIAPHORTIC. TEMP AX NOW 100.5. PATIENT STATES HE FEEL A LITTLE BETTER. COUGH IS LESS NOW.
--- NOTE | 2023-01-22 17:00 | NUR ---
MORPHINE HAS HELPED PATIENT WITH WOB, THIS REPEATED. USING URINAL TO VOID AT BEDSIDE. HR TO 140 WITH EXERTION.
--- NOTE | 2023-01-22 17:40 | NUR ---
SITTING UP IN BED FOR DINNER. O2 TO 4 L NC WHEN EATING.
--- NOTE | 2023-01-22 18:30 | NUR ---
TOOK DINNER WELL. NOW BACK ON BIPAP. HOB ELEVATED. IVF INFUSING AT 125 ML/HR. NO FUTHER CHANGES.
--- NOTE | 2023-01-22 20:12 | NUR ---
RECEIVED REPORT FROM DAY SHIFT RN. PT IS A/O, TACHYPNEIC WITH BIPAP ON. 2MG MORPHINE GIVEN. SECURITY OFFICERS AT BEDSIDE. ASSISTED PT TO USE URINAL. IV FLUIDS RUNNING. CALL LIGHT WITHIN REACH.
--- NOTE | 2023-01-22 20:20 | NUR ---
MD UPDATED ON PT CONDITION, NOTED WOB, RR IN 40'S AND INCREASED HR. NO NEW ORDERS ATT.
--- NOTE | 2023-01-22 21:19 | NUR ---
PT ASSESSMENT AND MEDICATION ADMINISTRATION COMPLETED. PT TACHYPNEIC, TACHYCARDIC, AND FEBRILE. PRN MORPHINE, TYLENOL, AND NORCO GIVEN. PT INCREASED ANXIETY AND WOB WHEN BIPAP REMOVED. PT COOPERATIVE WITH BIPAP. CALL LIGHT WITHIN REACH.
--- NOTE | 2023-01-22 22:36 | NUR ---
PT WOB HAS DECREASED SOME RR 30'S POST MORPHINE ADMINISTRATION DECREASED TO 25-26. TEMP HAS DECREASED WELL TO 100.4. PT STATES HE IS FEELING MORES RELAXED. IV FLUIDS AND ABX RUNNING. CALL LIGHT WITHIN REACH.
--- NOTE | 2023-01-23 00:13 | NUR ---
PT ASSESSMENT COMPLETED. PT REQUESTING BREATHING TREATMENT. IV FLUIDS RUNNING. CALL LIGHT WITHIN REACH.
--- NOTE | 2023-01-23 00:39 | NUR ---
PT REQUESTING SORBET. PLACED ON 6L NC WHILE EATING SNACK. SPO2 92%. CALL LIGHT WITHIN REACH.
--- NOTE | 2023-01-23 02:18 | NUR ---
TO PT ROOM FOR MEDICATION ADMINISTRATION. PT IS A/O, TACHYPNEIC, TACHYCARDIC AND FEBRILE. PT GIVEN NORCO FOR PAIN RATING OF 5/10. SECURITY OFFICERS REMAIN AT BEDSIDE. CALL LIGHT WITHIN REACH.
--- NOTE | 2023-01-23 03:35 | NUR ---
PT REQUESTING PAIN MEDICATION FOR PAIN IN RIGHT SIDE. CONTINUES TO BE SOB. MORPHINE GIVEN. TOO SOON FOR NORCO. TYLENOL ADMINISTERED FOR FEVER. PT REMAINS ON BIPAP WITH FIO2 40%. IV FLUIDS RUNNING.
--- NOTE | 2023-01-23 05:56 | NUR ---
MEDICATION ADMINISTRATION COMPLETED. PT STATES PAIN IMPROVED. PARTIAL LINEN CHANGE COMPLETED. PT IS A/O, TACHYPNEIC, AND TACHYCARDIC. BIPAP ON AT 40% FIO2. CALL LIGHT WITHIN REACH.
--- NOTE | 2023-01-23 07:30 | NUR ---
report received care of pt assumed at this time. PT resting on bipap. iv fluids and abx infusing. call light within reach. will continue to monitor.
--- NOTE | 2023-01-23 08:41 | NUR ---
ASSESSMENT AND MEDICATION ADMINSTRATION COMPLETED. PT ALERT AND ORIENTED, ANSWERING QUESTIONS APPROPRAITELY. WORK OF BREATHING IN THE MID 20S ON BIPAP, WITH SATURATIONS AT 96% ON 40% FIO2. PT MOMENTARILY ON ROOM AIR TRAIL. SATURATIONS DOWN INTO THE MID 80S AND RESPIRATORY RATEUP IN THE 40S. PLACED BACK ON BIPAP. PT LUNGS SOUND COARSE THROUGHOUT WITH CRACKLES, EXPIRATORY WHEEZE ALSO NOTED. PT DIAPHORETIC; AXILLARY TEMPERATURE OF 98.6. HEART RTEIN THE 120S AT REST. UP INTO THE 140S WITH EXERTION. PT ABLE TO STAND AT BEDSIDE FOR LINEN CHANGE. PARTIAL BED BATH GIVEN. 20 MG IV LASIX ADMINSITERED. IV MAGNESIUM, FLUIDS, AND ABX CONTINUE TO INFUSE. 2 MG IV MORPHINE GIVEN FOR SHORTNESS OF BREATH. PLAN OF CARE FOR DAY ESTABLISHED WITH DR TREVINO. CALL LIGHT WITHIN REACH. WILL CONTINUE TO MONITOR.
--- NOTE | 2023-01-23 09:26 | NUR ---
Patient's respiratory rate 26 when I entered the room, after 2mg morphine was administered. (see EMAR). Patient resting watching tv, CPAP on patient.
--- NOTE | 2023-01-23 10:45 | NUR ---
pT STOOD AT BEDSIDE TO VOID. HEART RATE IN THE 130S WITH ACTIVITY. PT BACK IN BED. TWO PERSON ASSIST WITH REPOSITIONING. CALL LIGHT WITHIN REACH. BIPAP REMAINS IN PLACE. GAURDS AT BEDSIDE. WILL CONTINUE TO MONITOR.
--- NOTE | 2023-01-23 11:35 | NUR ---
MED REC COMPLETE
--- NOTE | 2023-01-23 11:45 | NUR ---
ASSESSMENT COMPLETED. LUNGS SOUND LESS COARSE THROUGHOUT, BUT EXPIRATORY WHEEZE MORE PROMINENTLY HEARD. NE=843D, RR=30 AT REST. PT REPORTS PAIN IMPROVED WITH MORPHINE AND ORAL NORCO. GAURDS AT BEDSIDE. CALL LIGHT WITHIN REACH. WILL CONTINUE TO MONITOR.
--- NOTE | 2023-01-23 12:11 | NUR ---
VITALS CHARTED. PATIENT RESTING IN BED, BIPAP IN PLACE, 2 OFFICERS IN ROOM.
--- NOTE | 2023-01-23 12:30 | NUR ---
PT SAT UP ON SIDE OF BED TO EAT ON 6 L NC. HR IN THE 130S WHILE EATING. RESPIRATIONS IN THE 30S. PT APPEARS LESS TACHYPNEIC WITH EXERTION THAN EARLIER IN THE SHIFT. SHAHLA AT BEDSIDE. WILL CONTINUE TO MONITOR.
--- NOTE | 2023-01-23 13:13 | NUR ---
PT ASSISTED BACK TO BED AND PLACED BACK ON BIPAP. RT IN ROOM AT THIS TIME. 2 MG IV MORPHINE ADMINSITERED FOR EXERTIONAL SHORTNESS OF BREATH. CALL LIGHT WITHIN REACH. WILL CONTINUE TO MONITOR.
--- NOTE | 2023-01-23 15:00 | NUR ---
PATIENTUP TO BR WITH 1PA AND NASAL CANULA IN PLACE. PATIENT TOLERATED WELL. SMALL SOFT BM NOTED. LINEN CHANGED, PATIENT BACK TO BED AND BIPAP ON. SIPS OF WATER PROVIDED WELL. 2 OFFICERS IN ROOM. CALL LIGHT AND SIDE TABLE IN EASY REACH
--- NOTE | 2023-01-23 15:28 | NUR ---
Patient ambulated to bathroom for BM. Patient was SOB and on nasal cannula 8 L. When he returned to bed his oxygen saturation was 95%. Patient was SOB and put back on BIPAP.
--- NOTE | 2023-01-23 16:00 | NUR ---
RT IN ROOM GIVING PT A BREATHING TX PER PATIENT REQUEST.
--- NOTE | 2023-01-23 16:48 | NUR ---
ASSESSMENT COMPLETED. PT REPORTS RIGHT SIDED UPPER ABDOMINAL PAIN. TENDER TO PALPATION. ABDOMEN DOES APPEAR MILDLY DISTENDED. HEART RATE 125-130 AT REST. PT HAS A LOW GRADE AXILLARY TEMP OF 99.4, PT NOW APPEARS DIAPHORETIC AGAIN. LUNGS SOUND COARSE WITH EXPIRATORY WHEEZE THROUGHOUT. IV FLUIDS INFUSING. INSULIN GIVEN PER SLIDING SCALE ALONG WITH PRN MEDICATION FOR PAIN AND SHORTNESS OF BREATH. CALL LIGHT WITHIN REACH. WILL CONTINUE TO MONITOR.
--- NOTE | 2023-01-23 17:10 | NUR ---
No change in plan for CM.
--- NOTE | 2023-01-23 18:00 | NUR ---
DR TREVINO UPDATED ON PT HEART RATE, LOW GRADE TEMP, AND WORK OF BREATHING. ALSO DISCUSSED PT'S ONGOING RIGHT SIDE ABDOMINAL PAIN AND TENDERNESS. IV FLUIDS DC'D, NO OTHER ORDERS AT THIS TIME. PT CONTINUES TO REST ON BIPAP. CALL LIGHT WITHIN REACH. WILL CONTINUE TO MONITOR.
--- NOTE | 2023-01-23 19:54 | NUR ---
PT ASSESSMENT COMPLETED. PT IS A/O, RESPIRATORY THERAPY AT BEDSIDE. IV TO LEFT HAND AND RIGHT WNL, FLUSHED WITH 10ML NS. CALL LIGHT WITHIN REACH.
--- NOTE | 2023-01-23 21:18 | NUR ---
TO PT ROOM FOR MEDICATION ADMINISTRATION. PT IS A/O, COMPLETED SNACK WITH NC ON 6L. USING URINAL ATT. CALL LIGHT WITHIN REACH.
--- NOTE | 2023-01-23 21:29 | NUR ---
PT BACK ON BIPAP. ASSISTED PT TO READJUST IN BED. CALL LIGHT WITHIN REACH.
--- NOTE | 2023-01-23 22:12 | NUR ---
MEDICATION ADMINISTRATION COMPLETED. PT IS A/O, CONTINUES TO WEAR BIPAP AT 35%. CALL LIGHT WITHIN REACH.
--- NOTE | 2023-01-23 23:57 | NUR ---
PT ASSESSMENT COMPLETED. IV ABX RUNNING. PT IS A/O, RESPIRATIONS EVEN AND REGULAR ON BIPAP. PT DENIES NEEDS/COMPLAINTS ATT. CALL LIGHT WITHIN REACH.
--- NOTE | 2023-01-24 01:04 | NUR ---
PT COMPLETE LINEN AND GOWN CHANGED. PT IS A/O, CONTINUES TO WEAR BIPAP. IV ABX RUNNING. CALL LIGHT WITHIN REACH.
--- NOTE | 2023-01-24 02:11 | NUR ---
TO PT ROOM FOR MEDICATION ADMINISTRATION. PT APPEARS TO BE SLEEPING COMFORTABLY. REMAINS ON BIPAP 30%FIO2. CALL LIGHT WITHIN REACH.
--- NOTE | 2023-01-24 03:10 | NUR ---
ASSISTED PT TO SIT AT EOB TO USE URINAL. PT HAD INCREASED TACHYCARDIA TO 160-170'S WITH INCREASED SOB. PT RETURNED TO BED. BUT TACHYCARDIA WAS SUSTAINED. CHARGE NURSE NOTIFIED MD. TEE GIVEN FOR LOPRESSOR 5MG AND AYALA CATHETER PLACEMENT.
--- NOTE | 2023-01-24 03:24 | NUR ---
CALLED MD X 2 UPDATE ON PATIENT'S STATUS ORDERS RECEIVED FOR CHEST XRAY, EKG, AND AYALA MED ORDERS FOR LOPRESSOR AND LASIX SEE EMAR
--- NOTE | 2023-01-24 03:55 | NUR ---
AYALA CATHETER PLACED. PT TOLERATED WELL WITH GOOD U/O. 1X DOSE OF LASIX GIVEN. ASSESSMENT COMPLETED. EDUCATED PT ON MEDICATIONS.
--- NOTE | 2023-01-24 05:21 | NUR ---
PATIENT USED BEDPAN TO HAVE MEDIUM SEMI FORMED BM. PATIENT CONTINUES TO HAVE HR 140 - 150'S. DISCUSSED CONCERNS WITH . EVY TAVERA ORDERED.
--- NOTE | 2023-01-24 05:40 | NUR ---
PATIENT PROVIDED WITH PRN MORPHINE FOR RIB/SIDE PAIN. PATIENT ON BIPAP. HR 140-150'S. DILT DRIP STARTED AT 5 MG/HR. PATIENT IS DIAPHORETIC. OFFERED COOL WASH CLOTH. IV SITE IN RIGHT WRIST NOT PATENT. WILL ASSESS FOR SECONDARY SITE.
--- NOTE | 2023-01-24 07:22 | EKG ---
[facility] [address] [place] [address] Signed Atrial fibrillation with rapid ventricular response Abnormal ECG When compared with ECG of 22-JAN-2023 03:34, Atrial fibrillation has replaced Sinus rhythm Confirmed by VIKTORIA TREVINO MD ([id number]) on 01/24/2023 7:22:18 AM Electronically Signed By: VIKTORIA TREVINO MD 01/24/23721 PATIENT NAME: QUIQUEVENU Electrocardiogram DATE OF : 62 PHYSICIAN: VIKTORIA TREVINO MD REPORT #: [id number] REPORT IS CONFIDENTIAL AND NOT TO BE RELEASED WITHOUT AUTHORIZATION
--- NOTE | 2023-01-24 07:52 | NUR ---
PATIENT AWAKE, LYING IN BED, WATCHING TV, WITH BIPAP ON. GUARDS AT BEDSIDE.
--- NOTE | 2023-01-24 08:47 | NUR ---
PATIENT AWAKE IN BED, BIPAP IN PLACE AND 2 OFFICERS IN ROOM. VITALS AND I&OS CHARTED, AYALA EMPTIED. R/T IN TO FIT PATIENT FOR VAPOTHERM. PATIENT SET UP FOR BREAKFAST. CALL LIGHT IN EASY REACH
--- NOTE | 2023-01-24 09:30 | NUR ---
PATIENT SITTING IN BED, ON VAPOTHERM AT 35L 90%. PATIENT IS ALERT AND ORIENTED X 4, EATING BREAKFAST. GUARDS AT BEDSIDE. PATIENT'S RESTRAINTS IN PLACE, BILATERAL WRISTS AND FEET, IN CUSTODY OF GUARDS. PATIENT LUNGS ARE COARSE AND DIMINISHED THROUGHOUT, WITH RHONCHI NOTED. PATIENT CONTINUES TO COUGH UP THICK, BLOOD TINGED SPUTUM, MODERATE AMOUNT. ABDOMEN IS SOFT AND NONTENDER, WITH ACTIVE BOWEL SOUNDS. PATIENT STATES HIS MOST RECENT BOWEL MOVEMENT WAS LAST NIGHT. PATIENT MOVES ALL EXTREMETIES WITHOUT DIFFICULTY. SKIN IS INTACT. ALL RESTRAINT SITES SKIN INTACT AND PULSES PALPABLE.
--- NOTE | 2023-01-24 09:45 | NUR ---
PATIENT REQUESTED FLOW ON VAPOTHERM BE TURNED DOWN. TURNED TO 26L AND 93%. PATIENT APPEARS TO BE TOLERATING THIS WELL. INCREASED DILTIAZEM DRIP TO 15ML/HR.
--- NOTE | 2023-01-24 10:13 | NUR ---
Pt complained of flow being to much so RN decreased flow to 26L/min. Pt currently on 94% FiO2 and tolerating well. SpO2 is 87 to 91% on these settings via HFNC and patient states he does not feel SOB and actually states he feels more comfortable than with the other oxygen devices used. Pt has a home CPAP and if patient tolerating HFNC well today, we will trial him on his own unit with an oxygen bleed in [facility].
--- NOTE | 2023-01-24 10:43 | NUR ---
PER AM MEETING PATIENT TO REMAIN IN CCU. NO CHANGE IN DISCHARGE DISPOSITION AT THIS TIME.
--- NOTE | 2023-01-24 12:16 | NUR ---
PATIENT GIVEN BEDBATH, CLEAN LINEN AND GOWN PROVIDED. PATIENT SITTING UP IN CHAIR FOR LUNCH, TOLERATING WELL, WEARING VAPOTHERM. 2 OFFICERS IN ROOM AND SHACKLES IN PLACE. FOAM ALLEVYN ON EITHER SIDE OF PATIENTS LOWER BACK AREA TO PROTECT SKIN FROM SHACKLES. AYALA EMPTIED, AYALA CARE PROVIDED. CALL LIGHT IN EASY REACH.
--- NOTE | 2023-01-24 12:16 | NUR ---
PATIENT ASSISTED WITH BED BATH. PATIENT RR AND HR INCREASED WITH EXERTION. ABLE TO MAINTAIN O2 SATS ON VAPOTHERM. LINENS CHANGED. PATIENT SITTING IN RECLINER CHAIR EATING LUNCH AT THIS TIME. GUARDS REMAIN AT BEDSIDE. ASSESSMENT REMAINS THE SAME SINCE AM. PATIENT HAS REDDNED AREAS ON BACK FROM RESTRAINTS. THEY ARE BLANCHABLE. I PLACED FOAM DRESSINGS ON AREAS WHEN RESTRAINTS REPLACED.
--- NOTE | 2023-01-24 14:38 | NUR ---
PATIENT BACK TO BED
--- NOTE | 2023-01-24 16:07 | NUR ---
PATIENT STOOD UP AT BEDSIDE FOR 30 SECOND WHILE I STRAIGHTENED HIS BLANKETS/BEDSHEETS. PATIENT'S WORK OF BREATHING INCREASES GREATLY JUST WITH THE EFFORT OF SITTING UP, STANDING FOR LESS THAN 30 SECONDS, AND LYING BACK DOWN. RR UP TO 45, HR INCREASED, AND RR EFFORT WAS LABORED MORE.
--- NOTE | 2023-01-24 17:01 | NUR ---
PATIENT AWAKE IN BED, 2 OFFICERS IN ROOM. VITALS AND I&OS CHARTED. AYALA EMPTIED. PATIENT SITTING UP FOR SUPPER. RESTRAINTS AND VAPOTHERM IN PLACE CALL LIGHT IN EASY REACH
--- NOTE | 2023-01-24 20:23 | NUR ---
PT ASSESSEMENT AND MEDICATION ADMINISTRATION COMPLETED. PT IS A/O, CURRENTLY ON VAPOTHERM WITH SPO2 92% ON 85% AND 26L. PT STATES HE DOES NOT WANT TO USE HIS BIPAP TONIGHT IT IS HARD TO CLEAR SECRETIONS WITH IT ON. PT DENIES NEEDS/COMPLAINTS ATT. CALL LIGHT WITHIN REACH.
--- NOTE | 2023-01-24 21:40 | NUR ---
MEDICATION ADMINISTRATION COMPLETED. ASSISTED PT TO USE BED TEJADA. PRN MELATONIN GIVEN. CALL LIGHT WITHIN REACH.
--- NOTE | 2023-01-24 21:57 | NUR ---
SPOKE WITH MD REQUESTING MUCINEX FOR PT THICK SECRETIONS. MD TO PLACE ORDER.
--- NOTE | 2023-01-24 22:27 | NUR ---
TO PT ROOM FOR MEDICATION ADMINISTRATION. EDUCATION PROVIDED. WATER REFILLED. IV ABX RUNNING.
--- NOTE | 2023-01-24 23:37 | NUR ---
PT REQUESTING TO TRANSITION FROM VAPOTHERM TO BIPAP. RT AT BEDSIDE.
--- NOTE | 2023-01-25 00:20 | NUR ---
PT ASSESSEMENT COMPLETED. PT RESTING COMFORTABLY WITH BIPAP ON. 2 OFFICERS AT BEDSIDE. CALL LIGHT WITHIN REACH.
--- NOTE | 2023-01-25 03:00 | NUR ---
ROUNDED ON PT. PT APPEARS TO BE SLEEPING COMFORTABLY. RESPIRATIONS EVEN AND REGULAR. BIPAP ON. TWO OFFICERS REMAIN AT BEDSIDE.
--- NOTE | 2023-01-25 04:12 | NUR ---
PT ASSESSMENT COMPLETED. PT IS A/O, REMAINS ON BIPAP. OFFICERS AT BEDSIDE. CALL LIGHT WITHIN REACH. DENIES NEEDS/COMPLAINTS ATT.
--- NOTE | 2023-01-25 04:52 | NUR ---
PT REQUESTED TO BE TAKEN OF BIPAP. PLACED ON VAPOTHERM AT 26L 85FIO2, SPO2 94%. PT IS A/O, OFFICERS AT BEDSIDE. CALL LIGHT WITHIN REACH.
--- NOTE | 2023-01-25 06:01 | NUR ---
TO PT ROOM FOR MEDICATION ADMINISTRATION. AYALA BAG EMPTIED. PT REMAINS ON VAPOTHERM 85% FIO2. TWO SECURITY OFFICERS AT BEDSIDE. CALL LIGHT WITHIN REACH.
--- NOTE | 2023-01-25 07:31 | EKG ---
[facility] [address] [place], [place] [address] Signed Sinus tachycardia Otherwise normal ECG When compared with ECG of 24-JAN-2023 03:17, Sinus rhythm has replaced Atrial fibrillation Confirmed by VIKTORIA TREVINO MD ([id number]) on 01/25/2023 7:31:09 AM Electronically Signed By: VIKTORIA TREVINO MD 01/25/23 0731 PATIENT NAME: QUIQUEVENU Electrocardiogram DATE OF : 62 PHYSICIAN: VIKTORIA TREVINO MD REPORT #: [id number] REPORT IS CONFIDENTIAL AND NOT TO BE RELEASED WITHOUT AUTHORIZATION
--- NOTE | 2023-01-25 08:30 | NUR ---
PATIENT AWAKE, ALERT, SITTING IN BED, WATCHING TV. GUARDS ARE AT BEDSIDE. PATIENT REMAINS IN SHELTER 4 POINT RESTRAINTS. ABLE TO MOVE ALL EXTREMETIES. PULSES ARE PALPABLE AND SKIN INTACT. LUNGS REMAIN DIMINISHED. PATIENT NOT MOVING MUCH AIR IN RIGHT LOBE, LEFT LOBE CLEAR, DIMINISHED IN BASE. PATIENT CONTINUES TO COMPLAIN OF PAIN IN RIGHT UPPER QUADRANT/SIDE. IS AWARE. ABDOMEN IS SOFT, WITH ACTIVE BOWEL SOUNDS. PATIENT STATES HE HAD 3 BM LAST NIGHT. AYALA CATHETER IS IN PLACE, DRAINING YELLOW URINE TO GRAVITY. SKIN REMAINS INTACT WITH PRESSURE REDNESS IN AREAS WHERE RESTRAINS ARE ON BACK, ABDOMEN, WRISTS AND ANKLES. FOAM DRESSINGS PLACED ON BACK AND GAUZE WITH COBAN ON WRISTS FOR PADDING FROM RESTRAINTS. PATIENT IS ANIMATED AND TALKATIVE THIS MORNING AND STATES HE IS FEELING BETTER THAN YESTERDAY. PATIENT REMAINS ON VAPOTHERM 26L AT 85% AT TIME OF ASSESSMENT.
--- NOTE | 2023-01-25 11:30 | NUR ---
PATIENT SITTING IN RECLINER CHAIR FOR LUNCH. NO CHANGES FROM AM ASSESSMENT. NO COMPLAINTS OR NEEDS EXPRESSED AT THIS TIME.
--- NOTE | 2023-01-25 16:00 | NUR ---
PATIENT SITTING IN CHAIR,WATCHING TV, RESTRAINTS IN PLACE, GUARDS AT BEDSIDE. PATIENT HAS NO COMPLAINTS AT THIS TIME. AYALA DRAINING TO GRAVITY. ASSESSMENT IS UNCHANGED FROM PREVIOUS.
--- NOTE | 2023-01-25 20:00 | NUR ---
Bedside report received from outgoing nurse, MARCIAL Willis. Initial assessment performed with no critical interventions necessary. Patient sitting in chair while on Vapotherm at 25 LPM/60% FiO2 with no complaints of further respiratory distress. All vital signs stable with no indications of fever or pain. IV antibiotics infusing via PIV and funez in place, patent and draining. Two guards at bedside.
--- NOTE | 2023-01-25 22:00 | NUR ---
Patient assisted to bed and tolerated move well. All vital signs stable with no indications of respiratory distress or fever. Patient does complain of right sides pain in chest/back. Pain medication to be administered.
--- NOTE | 2023-01-26 | NUR ---
Repeat assessment performed with no acute changes since previous assessment unless noted. All vital signs stable with no complaints or indications of respiratpry distress, fever or pain. Patient still on Vapoterm at same settings with IV antibiotics infusing. Oneal patent and draining. Two guards at bedside.
--- NOTE | 2023-01-26 02:00 | NUR ---
Patient sleeping comfortably with no complaints or indications of further respiratory distress. All vital signs stable. Two guards at bedside.
--- NOTE | 2023-01-26 04:00 | NUR ---
Repeat assessment performed with no acute changes since the inital assessment unless noted. Patient awake and resting comfortably with guards at bedside. All vital signs stable with no complaints of respiratory distress, fever or pain. Oneal patent and draining. Will continue to monitor.
--- NOTE | 2023-01-26 06:23 | NUR ---
Patient awake and watching television with IV antibiotics infusing via PIV. All vital signs stable. Oneal bag emptied. Comfort measures provided.
--- NOTE | 2023-01-26 07:15 | NUR ---
PATIENT AWAKE, SITTING IN BED, WATCHING TV, GUARDS AT BEDSIDE. RR TACHYPNEIC AND MODERATELY LABORED.
--- NOTE | 2023-01-26 08:00 | NUR ---
PATIENT ASSISTED TO BATHROOM ON 6LNC. BOWEL MOVEMENT NOTED. PATIENT IS ALERT AND ORIENTED X 4. PATIENT LUNGS ARE DIMINISHED AND COARSE, ALMOST ABSENT IN RIGHT LOWER BASE, COARSE AND DIMINISHED MID RIGHT LUNG, AND COARSE IN RIGHT UPPPER LUNG. LEFT LUNG BASE IS COARSE AND DIMINISHED, SOUNDS LIKE CONSOLIDATION WHICH I DID NOT HEAR YESTERDAY IN PATIENT. LEFT UPPER LUNG SOUNDS REMAIN CLEAR. ABDOMEN IS SOFT AND NON TENDER, WITH ACTIVE BOWEL SOUNDS. AYALA IS TO GRAVITY, DRAINING CLEAR YELLOW URINE. PATIENT CONTINUES TO COMPLAIN OF RIGHT UPPER QUADRANT/FLANK AREA PAIN, NON-DESCRIPT. PATIENT MOVES ALL EXTREMETIES. SKIN REMAINS INTACT. NOTED SOME LEFT HAND EDEMA AT IV SITE THIS AM. IV FLUSHES SLUGGISHLY. PATIENT REMAINS IN GUARD'S 4 POINT RESTRAINTS.
--- NOTE | 2023-01-26 12:08 | NUR ---
PATIENT SLEEPING, RECLINED IN CHAIR. PATIENT WAKES EASILY AND RESPONDS APPROPRIATELY. LUNGS REMAIN THE SAME, HOWEVER,LEFT LOWER LOBE SOUNDS MORE CONDENSED AND COARSE AT THIS TIME. PATIENT IS COUGHING, BUT IT IS NOT PRODUCTIVE IT HAS BEEN. NO OTHER CHANGES FROM AM ASSESSMENT. PATIENT REMAINS ON VAPOTHERM, AYALA DRAINING TO GRAVITY.
--- NOTE | 2023-01-26 14:32 | NUR ---
RN IN ROOM TO HANG SCHEDULED ABX. IV SITE PATENT X2, PT DENIES NEEDS AT THIS TIME. 2 GUARDS AT SIDE.
--- NOTE | 2023-01-26 16:30 | NUR ---
PATIENT UP TO BATHROOM HAD A BOWEL MOVEMENT. PATIENT STOOD AT SINK AND CLEANED SELF UP WITH 6LNC FOR APPROXIMATELY 15 MIN AND THEN WALKED BACK TO CHAIR. PATIENT'S RESPIRATORY EFFORT AND WORK OF BREATHING INCREASED WITH THE EXERTION. O2 SATS WERE 89% AFTER RETURNING TO CHAIR. PATIENT RECOVERED QUICKLY BACK TO BASELINE AFTER PLACING HIM BACK ON VAPOTHERM. LUNGS REMAIN RIGHT LOBE DIMINISHED AND COARSE. I AM ABLE TO HEAR MORE MOVEMENT IN RIGHT BASE THAN AM AND MID ASSESSMENT. LEFT LOBE REMAINS DIMINISHED AND COARSE IN BASE, HOWEVER, IT DOES NOT SOUND CONSOLIDATED AM ASSESSMENT. PATIENT'S COUGH HAS INCREASED TODAY, BUT IT IS DRY, NON-PRODUCTIVE. I NOTIFIED AND ORDERS WERE RECEIVED. AYALA CATHETER CARE DONE INDEPENDANTLY AND THEN AYALA WAS REMOVED AFTER PATIENT RETURNED TO CHAIR. PATIENT TOLERATED WELL. NO OTHER CHANGES FROM AM/MID ASSESSMENT NOTED.
--- NOTE | 2023-01-26 17:35 | NUR ---
PATIENT SITTING IN CHAIR, WATCHING TV, C/O HEADACHE. MEDICATION GIVEN. MEAL TRAY SET UP. GUARDS REMAIN AT BEDSIDE.
--- NOTE | 2023-01-26 20:06 | NUR ---
RECEIVED REPORT FROM PREVIOUS SHIFT. VSS. PT IS SITTING UP IN RECLINER CHAIR AT BEDSIDE W/ RESTRAINTS IN PLACE AND OFFICERS AT SIDE. PT IS WATCHING TV AT THIS TIME AND DENIES PAIN. IVs PATENT. CALL LIGHT WITHIN REACH. PT VERBALIZES NEEDS APPROPRIATELY. WILL CONT TO MONITOR.
--- NOTE | 2023-01-26 21:53 | NUR ---
VSS. PT REMAINS SITTING UP IN RECLINER CHAIR AT BEDSIDE IN RESTRAINTS W/ OFFICERS AT SIDE. CALL LIGHT WITHIN REACH. NO SIGNS OF DISTRESS. RESPIRATIONS EVEN AND UNLABORED. WILL CONT TO MONITOR.
--- NOTE | 2023-01-26 23:45 | NUR ---
VSS. PT CONTINENT OF URINE W/ URINAL AT BEDSIDE. TRANSFER TO BED FROM CHAIR W/ SBA AND ASSIST W/ TUBE/LINE MANAGEMENT. PT VERBALIZES NEEDS APPROPRIATELY. CALL LIGHT WITHIN REACH. IVs PATENT. PT TOLERATING IV ABX ORDERED. NO SIGNS OF DISTRESS NOTED. RESPIRATIONS EVEN AND UNLABORED. PT REMAINS IN RESTRAINTS W/ OFFICERS AT BEDSIDE. WILL CONT TO MONITOR.
--- NOTE | 2023-01-27 02:34 | NUR ---
VSS. PT IS RESTING IN BED WITH HIS EYES CLOSED AND APPEARS COMFORTABLE. REMAINS IN RESTRAINTS W/ OFFICERS AT BEDSIDE. CALL LIGHT WITHIN REACH. NO SIGNS OF DISTRESS NOTED. RESPIRATIONS EVEN AND UNLABORED. WILL CONT TO MONITOR.
--- NOTE | 2023-01-27 07:15 | NUR ---
PATIENT LYING IN BED, WATCHING TV. RR EVEN, TACHYPNEIC, AND UNLABORED. RESTRAINTS REMAIN ON PATIENT. GUARDS AT BEDSIDE.
--- NOTE | 2023-01-27 07:51 | NUR ---
PATIENT AWAKE IN BED, 2 OFFICERS IN ROOM. VITALS AND I&OS CHARTED. VAPOTHERM IN PLACE, 500ML URINE CHARTED. WASHCLOTH PROVIDED FOR FACE AND HANDS. EXTRA WASHCLOTHS AND CLEAN GOWN LEFT IN BR FOR PATIENT, PATINT AWARE. PATIENT SITTING UP FOR BREAKFAST, CALL LIGHT IN EASY REACH. NO OTHER NEEDS AT THIS TIME.
--- NOTE | 2023-01-27 08:25 | NUR ---
PATIENT AWAKE, SITTING IN BED, WATCHING TV. BILATERAL UPPER AND LOWER SOFT RESTRAINTS REMAIN IN PLACE, MONITORED AND PLACED BY GUARDS, WHO REMAIN AT BEDSIDE. PATIENT IS ALERT & ORIENTED X 4. NO COMPLAINTS OR NEEDS NOTED AT THIS TIME. PATIENT IS SMILING AND TALKATIVE, ABLE TO TALK IN COMPLETE SENTENCES WITHOUT LOSING HIS BREATH. LEFT LOWER LOBE IS DIMINISHED AND MILDLY COARSE, CLEAR IN UPPER LOBE. RIGHT LOWER LOBE DIIMINISED, BUT MOVING AIR, COARSE THROUGHOUT. ABDOMEN IS SOFT, NON-TENDER, WITH ACTIVE BOWEL SOUNDS. PATIENT CONTINUES TO COMPLAIN OF SOME RIGHT SIDED PAIN IN RUQ/FLANK AREA, NON-SPECIFIC. PATIENT VOIDS TO URINAL WITHOUT DIFFICULTY. SKIN REMAINS INTACT MINUS SOME SMALL, MILD BRUISING AT PREVIOUS IV SITES IN UPPER EXTREMETIES. LEFT HAND IS MILDLY EDEMATOUS FROM IV D/C'D YESTERDAY. PATIENT MOVES ALL EXTREMETIES WITHOUT DIFFICULTY.
--- NOTE | 2023-01-27 09:49 | NUR ---
PER AM MEETING PATIENT IMPROVING, BUT WILL REMAIN IN CCU AT THIS TIME. NO CHANGE IN DISCHARGE DISPOSITION.
--- NOTE | 2023-01-27 12:30 | NUR ---
PATIENT SITTING IN CHAIR, WATCHING TV. GUARDS AT BEDSIDE. NO CHANGES FROM AM ASSESSMENT EXCEPT PATIENT'S COUGH IS BECOMING MORE PRODUCTIVE
--- NOTE | 2023-01-27 15:41 | NUR ---
PATIENT SITTING UP IN CHAIR, 2 OFFICERS IN ROOM. DINNER AND BREAKFAST ORDERED. CALL LGITH IN EASY REACH
--- NOTE | 2023-01-27 16:30 | NUR ---
PATIENT SITTING IN CHAIR, NO COMPLAINTS OR NEEDS AT THIS TIME. NO CHANGES FROM AM ASSESSMENTS WITH EXCEPTION OF INCREASED SPUTUM PRODUCTION.
--- NOTE | 2023-01-27 20:00 | NUR ---
RECEIVED REPORT FROM PREVIOUS SHIFT RN. PT IS SITTING UP IN HIS CHAIR AT BEDSIDE, WATCHING TV WITH RESTRAINTS IN PLACE AND OFFICERS AT SIDE. CALL LIGHT WITHIN REACH. URINAL AT BEDSIDE EMPTIED. IVs SL AND PATENT. VSS. NO DISTRESS NOTED. WILL CONT TO MONITOR.
--- NOTE | 2023-01-27 21:47 | NUR ---
ASSISTED PT WITH TRANSFER FROM CHAIR TO BED. PT NOW LYING IN BED WATCHING TV. REMAINS IN RESTRAINTS W/ OFFICERS AT BEDSIDE. CALL LIGHT WITHIN REACH. VSS. USING URINAL AT BEDSIDE. IVs PATENT. MEDICATIONS ADMINISTERED ORDERED. WILL CONT TO MONITOR.
--- NOTE | 2023-01-27 23:13 | NUR ---
PT UP TO BR W/ ASSIST. PT REMAINS IN RESTRAINTS W/ OFFICERS AT BEDSIDE. VSS. CALL LIGHT AT HAND. VERBALIZES NEEDS APPROPRIATELY. WILL CONT TO MONITOR.
--- NOTE | 2023-01-28 00:45 | NUR ---
PT SOB AFTER RETURNING TO BED FROM BR. RT NOTIFIED FOR PRN BREATHING TX.
--- NOTE | 2023-01-28 02:00 | NUR ---
IV ABX FINISHED INFUSING- IV FLUSHED AND SL. URINAL EMPTIED. PT REMAINS IN RESTRAINTS W/ OFFICERS AT BEDSIDE. VSS. CALL LIGHT WITHIN REACH.
--- NOTE | 2023-01-28 04:00 | NUR ---
VSS. CALL LIGHT WITHIN REACH. PT REMAINS IN RESTRAINTS W/ OFFICERS AT BEDSIDE. URINAL EMPTIED. IVs PATENT. WILL CONT TO MONITOR.
--- NOTE | 2023-01-28 05:11 | NUR ---
PT ASSISTED BACK TO BED. ICE WATER PROVIDED. I&O COMPLETED. NO OTHER NEEDS. GUARDS IN ROOM.
--- NOTE | 2023-01-28 06:00 | NUR ---
PT SITTING UP AT BEDSIDE- ASSISTED PT TO RECLINER CHAIR AT BEDSIDE PER PT REQUEST. VSS. VERBALIZES NEEDS APPROPRIATELY. CALL LIGHT AT HAND. PT REMAINS IN RESTRAINTS W/ OFFICERS AT SIDE. PT IS SITTING UP IN CHAIR AND WATCHING TV AT THIS TIME. WILL CONT TO MONITOR.
--- NOTE | 2023-01-28 07:30 | NUR ---
PATIENT SITTING UP IN RECLINER CHAIR IN TRIPOD POSITION WITH FACE MASK AT 8L ON, IV'S INFUSING. PATIENT IS UNABLE TO SPEAK FULL SENTENCES AND IS ROCKING BACK AND FORTH. LEFT LOWER LUNG COARSE AND SOUNDS LIKE CONSOLIDATION. RUL COARSE, MID LOBE ABSENT SOUNDS, RIGHT LOWER LOBE MINIMAL DIMINISHED MOVEMENT. PROPERTY COORDINATOR CALLED TO ROOM. PATIENT PLACED ON BIPAP. RLL SOUNDS ABSENT SHORTLY AFTER BIPAP APPLIED. CALLED AND NOTIFIED OF PATIENT STATUS. ORDERS FOR FLONASE AND COUGH MEDICINE RECEIVED. SEE PROPERTY COORDINATOR NOTE FOR SLIGHT IMPROVEMENT ON RIGHT LOBE AFTER 15 MIN ON BIPAP. PATIENT NEURO INTACT. ABDOMEN IS SOFT AND NONTENDER WITH ACTIVE BOWEL SOUNDS. PATIENT URINATES IN URINALS WITHOUT DIFFICULTY. SKIN REMAINS INTACT.
--- NOTE | 2023-01-28 08:03 | NUR ---
PATIENT SITTING UP IN CHAIR WEARING OXYMASK, RESTRAINTS IN PLACE AND 2C/O IN ROOM. PATIENT IN MIDDLE OF COUGHING SPELL, UNABLE TO ACTUALLY CATCH HIS BREATH. PATIENT ABLE TO PRODUCE AND SPIT OUT THICK DRK COLORED SPUTUM, HOWEVER THIS COUGH SOUNDS VERY UNPRODUCTIVE AND PATIENTS WORK OF BREATHING HAS INCREASED. RN AWARE, R/T NOTIFIED AND IN ROOM, PATIENT AGREED TO WEAR BIPAP, SITTING UP IN RECLINER FOR COMFORT. 200ML URINE AND VITALS CHARTED. CALL LIGHT IN EASY REACH.
--- NOTE | 2023-01-28 08:50 | NUR ---
No change in CM need at this time. Pt will return to [facility]. No needs at this time.
--- NOTE | 2023-01-28 09:34 | NUR ---
PATIENT SITTING IN RECLINER ON BIPAP. VERY MINIMAL AIR MOVEMENT IN RLL IF ANY AT ALL. AWAITING TO ASSESS PATIENT. HR 108 SATS 95% RR 30/MIN
--- NOTE | 2023-01-28 10:42 | NUR ---
PATIENT SITTING IN CHAIR, ON BIPAP. STATES HE IS FEELING A LITTLE BETTER. PATIENT TOOK BIPAP OFF FOR A COUPLE MINUTES TO TAKE PO MEDS. PATIENT CONTINUES TO BE TACHYPNEIC AND LABORED BREATHING, UNABLE TO SPEAK FULL SENTENCES. AWAITING TO ASSESS PATIENT.
--- NOTE | 2023-01-28 11:30 | NUR ---
PATIENT TAKEN TO CT VIA STRETCHER ON BIPAP, PATIENT DID NOT TOLERATE FACE MASK AND SATS WENTO 73%. PATIENT TOLERATED CT FAIR, HOWEVER, WHEN IMAGE CAME UP, TECH CALLED AND HE CAME TO SEE IMAGE HIMSELF. I CALLED SALES REPRESENTATIVE [employer] AND ASKED HIM TO HAVE CCU SET UP FOR A CHEST TUBE. THIS WAS DONE. AT THIS TIME, 1225 WE ARE WAITING ON SURGEON TO COME PLACE CHEST TUBE. PATIENT'S HR IS 113 BP 148/92 RR 30 OXYGEN 96% ON 15L FACE MASK.
--- NOTE | 2023-01-28 12:26 | NUR ---
PT JUST RETURNING FROM SURGERY, WILL FOLLOW
--- NOTE | 2023-01-28 12:43 | NUR ---
AT BEDSIDE AND CHEST TUBE INSERTED AT 1243. PATIENT TOLERATED WELL. LARGE AMOUNT OF FLUID FROM CHEST WALL UPON INSERTION, PATIENT FELT IMMEDIATE RELIEF. TUBE SECURED. APPROXIMATELY 1300 CC IN PLEUROVAC RIGHT AFTER INSERTION. AFTER XR FOR CONFIRMATION OF PLACEMENT, PATIENT MOVED TO CHAIR WITH LITTLE ASSISTANCE AND IS SITTING UP SMILING. HE IS PLACED ON 5LNC, SATS >94%. GIVEN MEAL TRAY. LUNGS COARSE WITH FINE CRACKLES IN LEFT LOWER LUNG. LEFT UPPER LUNG CLEAR. RIGHT UPPER LUNG COARSE, RIGHT MID AND LOWER LUNG COARSE AND DIMINISHED BUT MOVING AIR. ASSESSMENT OTHER THAN LUNGS REMAINS UNCHANGED FROM AM ASSESSMENT.
--- NOTE | 2023-01-28 14:22 | NUR ---
PATIENT SITTING UP IN CHAIR, WATCHING TV. HAS NO COMPLAINTS AT THIS TIME. DECREASED OXYGEN TO 2LNC. LUNGS UNCHANGED, DIMINISHED AND COARSE ON RIGHT. COARSE IN LLL.
--- NOTE | 2023-01-28 16:05 | NUR ---
PATIENT SITTING UP IN RECLINER, RESTRAINTS IN PLACE AND 2 C/O IN ROOM. R/T IN ROOM FOR NEB TREATMENT. VITALS AND I&OS CHARTED. PATIENTS DINNER AND BREAKFAST HAVE BEEN ORDERED. CALL LIGHT AND BEDSIDE TABLE ITEMS IN EASY REACH
--- NOTE | 2023-01-28 18:39 | NUR ---
PATIENT SITTING IN RECLINER, STATES HE IS STARTING TO HURT ON HIS RIGHT SIDE AT CHEST TUBE INSERTION SITE. LLL COARSE WITH FINE CRACKLES NOTED, AND DIMINISHED SLIGHTLY. LEFT UPPER LUNG CLEAR. RIGHT LOWER LOBE COARSE AND DIMINISHED SLIGHTLY, IS MID LUNG. RIGHT UPPER LOBE COARSE. PATIENT'S RR EVEN AND UNLABORED AT 2LNC. NO OTHER CHANGES FROM AM ASSESSMENT.
--- NOTE | 2023-01-28 20:00 | NUR ---
REPORT RECEIVED FROM DAY SHIFT RN. PT IS SITTING UP IN RECLINER CHAIR, WATCHING TV W/ RESTRAINTS IN PLACE AND OFFICERS AT SIDE. CALL LIGHT WITHIN REACH. PT VERBALIZES NEEDS APPROPRIATELY. VSS. O2 @ 2 LPM VIA NC- PT IS TOLERATING WELL. RIGHT CT TO SUCTION W/ C/D/I DRESSING IN PLACE. VOIDS IN URINAL AT BEDSIDE. NO SIGNS OF DISTRESS NOTED AT THIS TIME; RESPIRATIONS EVEN AND UNLABORED. IVs FLUSHED AND PATENT. WILL CONT TO MONITOR.
--- NOTE | 2023-01-28 22:00 | NUR ---
PT SITTING UP IN RECLINING CHAIR AT BEDSIDE W/ RESTRAINTS IN PLACE AND OFFICERS AT SIDE. VSS. PT USES CALL LIGHT APPROPRIATELY. TRANSFERRED FROM CHAIR TO BED W/ MINIMAL ASSISTANCE. CT TO SUCTION; PT TOLERATING WELL. NO SIGNS OF DISTRESS NOTED AT THIS TIME. RESPIRATIONS ARE EVEN AND UNLABORED. IV ABX INFUSING ORDERED- NO NOTED ADVERSE EFFECT TO ABX THERAPY AT THIS TIME. URINALS EMPTIED. WILL CONT TO MONITOR.
--- NOTE | 2023-01-29 | NUR ---
PT IS RESTING IN BED W/ RESTRAINTS IN PLACE AND OFFICERS AT BEDSIDE. PT APPEARS COMFORTABLE AT THIS TIME. RIGHT CT TO SUCTION- PT TOLERATING WELL. VSS. CALL LIGHT WITHIN REACH- PT USES APPROPRIATELY. NO DISTRESS NOTED AT THIS TIME. WILL CONT TO MONITOR.
--- NOTE | 2023-01-29 02:00 | NUR ---
PT RESTING IN BED AND APPEARS COMFORTABLE. RESTRAINTS IN PLACE. OFFICERS AT BEDSIDE. VSS. RIGHT CT PATENT. NO DISTRESS NOTED. CALL LIGHT WITHIN REACH. WILL CONT TO MONITOR.
--- NOTE | 2023-01-29 04:00 | NUR ---
PT RESTING IN BED AND APPEARS COMFORTABLE. RESTRAINTS IN PLACE W/ OFFICERS AT BEDSIDE. CALL LIGHT WITHIN REACH. VERBALIZES NEEDS APPROPRIATELY. USING URINAL AT BEDSIDE. VSS. WILL CONT TO MONITOR.
--- NOTE | 2023-01-29 05:44 | NUR ---
PT SAT AT BEDSIDE TO USE URINAL. PT TOOK NC OFF TO BLOW NOSE AND DESAT INTO 70s, PLACED BACK ON NC @2L AND HE TOOK SEVERAL MINUTES TO RECOVER. EDUCATION PROVIDED CONCERNING THE NEED TO LEAVE O2 ON OR QUICKLY BLOW HIS NOSE AND RETURN TO NC. NO OTHER NEEDS AT THIS TIME. CALL LIGHT IN REACH. C.O.S IN ROOM.
--- NOTE | 2023-01-29 08:34 | NUR ---
ASSESSMENT COMPLETED. PT ALERT AND ORIENTED, ANSWERING ALL QUESTIONS APPROPRIATELY. CRACKLES NOTED PRIDOMINATELY RIGHT LOWER LUNG BASE. PT DENIES PAIN. ASSISTED PT UP TO CHAIR FOR BREAKFAST. INSULIN PER SLIDING SCALE GIVEN ALONG WITH OTHER AM MEDICATIONS. LEFT AC IV HAS GRADE 2 INFILTRATION. IV DC'D AND WARM COMPRESS APPLIED. PT ON ROOM AIR. SITTING UP IN CHAIRS. CALL LIGHT WITHIN REACH. WILL CONTINUE TO MONITOR.
--- NOTE | 2023-01-29 09:45 | NUR ---
PT REMAINS UP IN CHAIR ON ROOM AIR WITH SPO2 AT 90%. PT CALL FREQUENTLY FOR DRINKS, USE URINAL, AND OTHER NEEDS. PROJECT ECONOMISTAlexi MURILLO CHANGED LINENS. CALL LIGHT WITHIN REACH AND GAURDS REMAIN AT BEDSIDE. WILL CONTINUE TO MONITOR.
--- NOTE | 2023-01-29 10:54 | NUR ---
DR LINDSEY IN ROOM AT THIS TIME TO ASSESS PT.
--- NOTE | 2023-01-29 11:40 | NUR ---
RECIEVED REPORT FROM MARCIAL ANTONIO. PT BROUGHT TO MS ROOM 124 VIA RECLINER. PT CHEST TUBE ATRIUM CHANGED AT THIS TIME, CONNECTED TO WALL SUCTION. PT ORIENTED TO CALL LIGHT, WITHIN REACH. DENIES FURTHER NEEDS
--- NOTE | 2023-01-29 16:34 | NUR ---
ADMINISTERED NEB TO PT PER ORDER. PT IRRITATED WITH STAFF OVER MEALS. STATES HE HAS NOT BEEN DOING HIS IS OR ACCAPELLA PREVIOUSLY INSTRUCTED. ADVISED THAT HE SHOULD BE DOING THEM TO HELP WITH HIS PNEUMONIA.
--- NOTE | 2023-01-29 17:00 | NUR ---
chest tube 20 cm to suction, leak noted to stage 2, site to r chest wall secure and wnl - pt on room air tollerating well - red fluid noted in the ct tubing. pt up in chair with [facility]oci restraints on and 2 eoci gaurds present.
--- NOTE | 2023-01-29 19:30 | NUR ---
RECEIVED BEDSIDE REPORT FORM OFFGOING SHIFT, HOURLY ROUNDING INITIATED.
--- NOTE | 2023-01-29 21:45 | NUR ---
IN PT ROOM FOR MEDICATION ADMINISTRATION. PT RESTING ON BACK, HOB ELEVATED, WATCHING TELEVISION. PT HAS 2 OFFICERS AT BEDSIDE, NO COMPLAINT OF PAIN OR DISCOMFORT, BREATHING IS EVEN AND UNLABORED, NO INDICATION OF PAIN. CALL LIGHT IN REACH.
--- NOTE | 2023-01-30 00:38 | NUR ---
IN PT ROOM FOR ROUNDING. PT STATES HE IS GOING TO SIT UP TO USE URINAL SHORTLY, HAS NO COMPLAINT OF PAIN OR DISCOMFORT, CALL LIGHT IS IN REACH. 2 OFFICERS AT BEDSIDE.
--- NOTE | 2023-01-30 01:57 | NUR ---
in pt room for rounding. pt resting on back, HOB elevated, watching TV. Pt has 2 officers at bedside, no complaint of pain or discomfort, call light in reach.
--- NOTE | 2023-01-30 04:32 | NUR ---
In pt room for rounding. Pt rsting on back, eyes closed, breathing even and unlabored, call light in reach. 2 officers at bedside.
--- NOTE | 2023-01-30 06:49 | NUR ---
in pt room for rounding. pt resting on back, 2 officers at bedside, breathing even and unlabored, call light in reach
--- NOTE | 2023-01-30 07:25 | NUR ---
in room for bedside report from sharon rn, pt resting in bed 3/10 lung pain, chest tube to low suction 20 cm water seal no current leak or bubbles noted at this time. site to right chest wnl and tube checked. eoci gaurds x2 and eoci restraints on pt. iv wnl sl. call light in reach, pt on room air.
--- NOTE | 2023-01-30 08:54 | NUR ---
PT CALLED FOR ASSISTANCE TO THE RESTROOM. THIS CENTERPUNCHER ASSISTED PT TO STAND AND AMB TO BR ON ROOM AIR. RN IN ROOM. 2 [facility] STAFF AND [facility] RESTRAINTS ON PT.
--- NOTE | 2023-01-30 10:00 | NUR ---
DR LINDSEY IN TO SEE PT - CXR ORDERED.
--- NOTE | 2023-01-30 10:37 | NUR ---
PT DOING PORTABLE CXR IN ROOM NOW.
--- NOTE | 2023-01-30 11:35 | NUR ---
PER AM MEETING NO CHANGE IN DISCHARGE DISPOSITION AT THIS TIME. PER DR. DONG PATIENT NEARING DISCHARGE PENDING CHECT TUBE REMOVAL.
--- NOTE | 2023-01-30 11:46 | NUR ---
PT LAYING IN BED SEMI-JACOB WATCHING TV, TWO GUARDS IN ROOM. CBG TAKEN, RN NOTIFIED. NO OTHER REQUESTS AT THIS TIME.
--- NOTE | 2023-01-30 14:15 | NUR ---
IN ROOM WITH DR DONG FOR ROUNDS. PT REPORTS FEELING BETTER AND BREATHING EASIER ON ROOM AIR. CHEST TUBE TO WATER SEAL, CALL LIGHT IN REACH.
--- NOTE | 2023-01-30 14:27 | NUR ---
sputum sample dark and thick collected by rn and sent to the lab - rt in for repeat covid test due to length of stay. rn provided pt with juice per request and no other needs noted.
--- NOTE | 2023-01-30 15:46 | NUR ---
RT COLLECTED RAPID COVID 19 SWAB AT THIS TIME WITH NO COMPLICATIONS.
--- NOTE | 2023-01-30 16:00 | NUR ---
IN ROOM TO ASSIST DR LINDSEY WITH CHEST TUBE - TUBE CLAMPED AND FLUSHED WITH DANDY - THEN RE ATTACHED WALL SUCTION LOW AND WATER SEAL SUCTION TO -30. NO MOVEMENT IN CANISTER NO BUBBLES, R CHEST BANDAGE SECURED WITH PINK TAPE BY AND RE ATTACHED TO WATER SEAL CANISTER. PREVIOUS 40 ML OF DARK RED DRAINAGE REPORTED TO NO IMMEDIATE RETURN TO CANISTER - PT WAS COUGHING UP COPIUS AMTS OF SPUTUM AND SPITTING OUT. SPUTUM WAS SENT TO LAB [facility].
--- NOTE | 2023-01-30 17:21 | NUR ---
PT UP IN BED EATING DINNER, DENIES NEEDS.
--- NOTE | 2023-01-30 19:39 | NUR ---
RECEIVED BEDSIDE REPORT FROM OFFGOING SHIFT, HOURLY ROUNDING INITIATED.
--- NOTE | 2023-01-30 21:31 | NUR ---
in pt room for medication administration and assessment. pt resting on back, chest tube in place, eyes open, watching TV, assisted to toilet. Pt has 2 officers at bedside, no complaint of pain or discomfort, call light in reach.
--- NOTE | 2023-01-30 23:57 | NUR ---
In pt room for rounding. pt resting on back, HOB elevated, breathing even and unlabored, no indication or complaint of pain, call light in reach.
--- NOTE | 2023-01-31 03:42 | NUR ---
in pt room for rounding. pt laying on back HOB elevated, 2 offciers at bedside. Pt has no complaint or indication of pain, breathing even and unlabored, call light in mel
--- NOTE | 2023-01-31 05:21 | NUR ---
IN PT ROOM FOR ROUNDING. PT RESTING ON BACK, HOB ELEVATED, CALL LIGHT IN REACH. PT HAS 2 OFFICERS AT BEDSIDE, NO COMPLAINT OR INDICATION OF PAIN OR DISCOMFORT
--- NOTE | 2023-01-31 06:35 | NUR ---
IN PT ROOM FOR ROUNDING. PT HAS 2 OFFICERS AT BEDSIDE, NO COMPLAINT OF PAIN OR DISCOMFORT, CALL LIGHT IN REACH
--- NOTE | 2023-01-31 07:50 | NUR ---
RECIEVED SHIFT REPORT. PT RESTING IN BED, AWAKE. UTILITY MECHANIC SUPERVISOR AT BEDSIDE. GUARDS AT BEDSIDE. DENIES FURTHER NEEDS. CALL LIGHT IN REACH
--- NOTE | 2023-01-31 08:30 | NUR ---
Patient in bed this am. Acu check completed. Guards in room. Call light within reach.
--- NOTE | 2023-01-31 08:45 | NUR ---
MORNING ASSESSMENT COMPLETE. PT RATED HEAD PAIN, 5/10. PRN PAIN MEDICATION ADMINISTERED (PER EMAR). CHEST TUBE DRESSING INTACT. DRAINING MINIMAL SEROUS FLUID INTO ATRIUM, HOOKED TO WALL SUCTION. LUNG SOUNDS DIMINISHED IN THE RIGHT UPPER AND LOWER LOBES, CLEAR JONO, DIMINISHED LLL. CHEST TUBE BELLOW EXPANDED TO DELTA JASPREET, SUCTION PRESSURE SET AT -30. NO BUBBLING NOTED, NO TIDALING NOTED IN WATER SEAL COLUMN. DURING ASSESSMENT PT COMPLAINED OF COUGHING UP SCANT AMOUNT OF BROWN/RED SPUTUM. WILL CONTIUNE TO MONITOR. DENIES FURTHER NEEDS AT THIS TIME. CALL LIGHT WITHIN REACH. GUARDS AT BEDSIDE.
--- NOTE | 2023-01-31 09:25 | NUR ---
Received call from [facility] requesting update for this pt. Placed and hold and spoke with both Dr. Delgado and Dr. Ulloa. Pt cont. with a CT. Pt. will not dc today. May dc over the weekend, depending if CT is pulled. Awaiting Culture of CT drainage from yesterday.
--- NOTE | 2023-01-31 10:37 | NUR ---
PT STATES BROWN/RED SPUTUMN HAS SUBSIDED AT THIS TIME.
--- NOTE | 2023-01-31 12:08 | NUR ---
PT CALL LIGHT ON. PT REQUESTS ASSISTANCE UP TO RESTROOM. CHEST TUBE DISCONNECTED TEMPORARLY FROM WALL SUCTION FOR RESTROOM USE. PT AMBUALTES TO RESTROOM WITH STAND BY ASSIST. PT VOIDS AND HAS MEDIUM BOWEL MOVEMENT. MILES CARE PER PT. STAND BY ASSIST BACK TO BED. CHEST TUBE REATTACHED TO WALL SUCTION. NO ADDITIONAL REQUESTS OR COMPLAINTS. CALL LIGHT WITHIN REACH. BED RAILS UP. OFFICERS AT BEDSIDE.
--- NOTE | 2023-01-31 15:15 | NUR ---
AFTERNOON ASSESSMENT. NO NEW CHANGES SINCE MORNING ASSESSMENT. CHEST TUBE ATRIUM REMAINS UNCHANGED. COMPLAINS OF 5/10 HEAD PAIN, BUT TOLERABLE. DENIES FURTHER NEEDS. CALL LIGHT WITHIN REACH
--- NOTE | 2023-01-31 19:30 | NUR ---
RECEIVED BEDSIDE REPORT FROM OFFGOING SHIFT, ROUNDING INITIATED.
--- NOTE | 2023-01-31 22:02 | NUR ---
IN PT ROOM FOR ROUNDING. PT RESTING ON BACK, HOB ELEVATED, EYES OPEN, BREATHING EVEN AND UNLABORED, NO INDICATION OF OR COMPLAINT OF PAIN OR DISCOMFORT, CALL LIGHT IN REACH 2 OFFICERS AT BEDSIDE
--- NOTE | 2023-01-31 23:46 | NUR ---
IN PT ROOM FOR ROUNDING. PT HAS 2 OFFICERS AT BEDSIDE, PT IS RESTING WITH HOB ELEVATED, BREATHING EVEN AND UNLABORED, NO INDICATION OR COMPLAINT OF PAIN, CALL LIGHT IN REACH
--- NOTE | 2023-02-01 01:51 | NUR ---
IN PT ROOM FOR ROUNDING. PT RESTING WITH HOB ELEVATED, 2 OFFICERS AT BEDSIDE. PT HAS NO COMPLAINT OF PAIN WHEN ASKED, CALL LIGHT IN REACH
--- NOTE | 2023-02-01 03:50 | NUR ---
IN PT ROOM FOR ROUNDING. PT RESTING ON BACK, HOB ELEVATED, 2 OFFICERS AT BEDSIDE. PT BREATHING IS EVEN AND UNLABORED WITH NO INDICATION OF PAIN OR DISCOMFORT. CALL LIGHT IN REACH
--- NOTE | 2023-02-01 06:09 | NUR ---
IN PT ROOM FOR HOURLY ROUNDING. PT RESTING ON ABCK, EYES CLOSED, BREATHING EVEN AND UNLABORED. PT HAS 2 OFFICERS AT BEDSIDE, NO COMPLAINT OF PAIN OR DISCOMFORT. PT CHEST TUBE HAD 0 OUTPUT DURING THIS SHIFT, PT CONTINUES TO SPIT UP HORRIBLE LOOKING SPUTUM. PT IS SCHEDULED FOR XRAY THIS MORNING. PT HAS CALL LIGHT IN REACH
--- NOTE | 2023-02-01 08:00 | NUR ---
PT IN BED IN RESTRAINTS VIA [facility], TWO OFFICERS AT THE BEDSIDE. PT HAS NO C/O AT THIS TIME. CHEST TUBE DRESSING INPLACE AND TO PAM CEJA.
--- NOTE | 2023-02-01 08:04 | NUR ---
Patient in bed this am. Acu check completed. Guards in room. Call light within reach.
--- NOTE | 2023-02-01 09:19 | NUR ---
PATIENT IN BED AFTER MEAL. [employer] GUARDS IN ROOM. VITALS AND I/O'S COMPLETED. CALL LIGHT WITHIN REACH.
--- NOTE | 2023-02-01 09:55 | NUR ---
PT REMAINS IN BED TWO OFFICERS AT BEDSIDE. [facility] RESTRAINS INPLACE. CHEST TUBE HAS NO DRAINAGE THIS AM SO FAR.
--- NOTE | 2023-02-01 10:58 | NUR ---
PT IN BED WITH TWO OFFICERS IN THE ROOM. PT APPEARS TO BE SLEEPING IN THE BED. ALL [address]. CHEST TUBE TO WALL SUCTION.
--- NOTE | 2023-02-01 11:35 | NUR ---
MEDICATED FOR CHEST TUBE REMOVAL AT THIS TIME. DR LINDSEY IS IN HOUSE AT THIS TIME AND WILL REMOVED CHEST TUBE SOON.
--- NOTE | 2023-02-01 12:09 | NUR ---
CHEST TUBE OUT AT THIS TIME BY DR LINDSEY. VASLINE GAUZE AND 4X4 WITH SILK TAPE DRESSING APPLIED. NO SHORTNESS OF BREATH NOTED. REMAINS ON ROOMAIR. PT DENIES ANY NEEDS AT THIS TIME, REFUSED TO BE WASHED UP AT THIS TIME.
--- NOTE | 2023-02-01 12:59 | OR ---
[facility] [address], [place] [address] Signed DATE OF OPERATION: 01/28/2023 SURGEON: Herlinda Lindsey MD PREOPERATIVE DIAGNOSIS: Symptomatic large right pneumothorax and right pleural effusion. POSTOPERATIVE DIAGNOSIS: Symptomatic large right pneumothorax and right pleural effusion. PROCEDURE: Placement of right chest tube (24-Icelandic). ANESTHESIA: 2% lidocaine with epinephrine and 100 mg fentanyl IV. INDICATIONS: This 62-year-old white man has been admitted since 01/22/2023 with a right-sided pneumonia. He was placed on BiPAP yesterday and before and did have some shortness of breath late last night. He has had increasing difficulty with respirations. He underwent a CT scan, which showed a large right pneumothorax and pleural effusion. I was urgently requested for placement of a chest tube by Dr. Dong his managing physician. I did discuss with the patient the need for right-sided chest tube. He agrees and did sign his consent. FINDINGS: Clear but orange like pleural fluid was noted in copious amounts. Nearly 1200 mL was withdrawn. Additionally, he had forceful air from the chest tube site. The chest tube is a 24-Icelandic and is extended to the apex of the right pleural space and appears to be functioning well. The postprocedure chest x-ray showed good expansion of the lung. There is a significant infiltrate in the right middle lobe. DESCRIPTION OF PROCEDURE: In the semi-upright position in the Intensive Care Unit, the right arm was elevated. The right chest was prepared with a Betadine based solution. Sterile drapes were applied. Using sterile technique including glove, gown, mask etc, the 6th rib was identified lateral to the right nipple in the anterior axillary line. 2% lidocaine was injected subdermally and additionally in the deep subcutaneous space. With a 10 blade, Electronically Signed By: HERLINDA LINDSEY MD 02/01/23 1259 PATIENT NAME: VENU LEI OPERATIVE REPORT DATE OF : 62 REPORT #: [id number] PHYSICIAN: HERLINDA LINDSEY MD PCP: CHILO GUNTER REPORT IS CONFIDENTIAL AND NOT TO BE RELEASED WITHOUT AUTHORIZATION [facility] [address], [place] [address] Signed a transverse incision was made. Dissection carried through the subcutaneous tissue with a heavy clamp. The rib was identified and additional infiltration of local anesthetic was undertaken. The patient was given 100 mcg of fentanyl IV. Full cardiopulmonary monitoring was maintained. Staying directly over the rib, the pleural space was ultimately entered allowing for a considerable merida of air and fluid. The 24-Icelandic straight chest tube was insinuated into the pleural space and guided gently to the apex. It was then secured with 0 silk suture. The chest tube was attached to an atrium Pleur-Evac type device. Approximately 1200 mL of free-flowing orange serous fluid was noted in the device. There appears to be no ongoing air leak at this time. The chest tube site was dressed with plain gauze as well as pink tape. The connection between the tube and the atrium device also secured with pink tape and additional secured to the abdominal wall with the chest tube with pink tape as well. MD PRIETO Freed/MODL /[id number] cc: Aditya Dong MD Copies: ADITYA DONG MD ~ Electronically Signed By: HERLINDA LINDSEY MD 02/01/23 1259 PATIENT NAME: VENU LEI OPERATIVE REPORT DATE OF : 62 REPORT #: [id number] PHYSICIAN: HERLINDA LINDSEY MD PCP: CHILO GUNTER REPORT IS CONFIDENTIAL AND NOT TO BE RELEASED WITHOUT AUTHORIZATION
--- NOTE | 2023-02-01 12:59 | CONS ---
[facility] [address] [place], [place] [address] Signed DATE OF CONSULTATION: 01/28/2023 REQUESTING PHYSICIAN: Dr. Dong. PROBLEM: Right-sided hydropneumothorax. HISTORY OF PRESENT ILLNESS: This 62-year-old white man is a prisoner at the [employer] currently. He has been admitted since January 22, 2023, with a recurrent pneumonia. He has had an MRSA pneumonia in the past. He had decreasing oxygen saturations yesterday and required BiPAP as an intervention. Notably, his sputum that was obtained at admission on 01/22/2023, showed rare gram-positive rods. The patient has been under antibiotic therapy. With worsening of his situation, he underwent a CT scan under the direction of Dr. Dong today, which showed a rather large right hydropneumothorax. There was some mild tracheal deviation to the left. On that basis, a chest tube was urgently requested. PHYSICAL EXAMINATION: A bald headed white man, who looks to be in moderate distress. He did not have tracheal deviation clinically nor distention of jugular veins particularly. He was slightly tachypneic at 22. The CT scan was briefly reviewed showing a hydropneumothorax on the right side. ASSESSMENT AND PLAN: The patient has a significant and increasingly symptomatic large right hydropneumothorax, for which chest tube placement is appropriate. I did discuss with Dr. Dong and the team as well as the patient in an abbreviated and prompt way the need for right-sided chest tube, he agrees and the chest tube is to be placed. MD PRIETO Freed/SPARKLE /[id number] Electronically Signed By: HERLINDA LINDSEY MD 02/01/23 1259 PATIENT NAME: VENU LEI CONSULTATION DATE OF : 62 REPORT #: [id number] PHYSICIAN: HERLINDA LINDSEY MD PCP: CHILO GUNTER REPORT IS CONFIDENTIAL AND NOT TO BE RELEASED WITHOUT AUTHORIZATION [address] [address] Signed cc: Aditya Dong MD Copies: ADITYA DONG MD ~ Electronically Signed By: HERLINDA LINDSEY MD 02/01/23 1259 PATIENT NAME: VENU LEI RADHA CONSULTATION DATE OF : 62 REPORT #: [id number] PHYSICIAN: HERLINDA LINDSEY MD PCP: JANI,CHILO [employer] REPORT IS CONFIDENTIAL AND NOT TO BE RELEASED WITHOUT AUTHORIZATION
--- NOTE | 2023-02-01 14:24 | NUR ---
PATIENT IN BED. VITALS AND I/O'S COMPLETED. TWO EOCI GUARDS IN ROOM. CALL LIGHT WITHIN REACH.
--- NOTE | 2023-02-01 14:42 | NUR ---
pt c/o his doctors at [facility]. Explained that I have no control over his medical and he needs to talk with them. Then he started c/o about the nurses at [facility] also and told him I have no conrtol over there staff. Pt given a cup for sputum sample and explained to use and and call staff.
--- NOTE | 2023-02-01 17:29 | NUR ---
PT AWAKE, DENIES PAIN AT THIS TIME. EATING DINNER HAS RESTRAINTS ON WITH EOCI 2 OFFICERS AT THE BEDSIDE. ABX CONTIOUE TO INFUSE AND NO SWELLING OR REDNESS NOTED AT THIS TIME.
--- NOTE | 2023-02-01 18:37 | NUR ---
PT IN BED WATCHING TV AT THIS TIME, 2 OFFICERS REMAIN IN THE ROOM WITH PT. RESTRAINTS INPLACE PER EOCI WRIST AND LEG. NO C/O'S AT THIS TIME.
--- NOTE | 2023-02-01 19:15 | NUR ---
ASSUMED CARE OF PT UPON RECEIVING BEDSIDE HANDOFF REPORT FROM DAY NURSE. PT SITTING UP IN BED, ALERT AND ORIENTED, NAD, NO C/O. 2 GUARDS AT BEDSIDE, PT WITH EOC RESTRAINTS TO BL WRISTS. WILL CONTINUE TO MONITOR AND FOLLOW POC.
--- NOTE | 2023-02-02 02:10 | NUR ---
PT SLEEPING. EASILY AROUSED. NAD, NO C/O. 2 GUARDS AT BEDSIDE. PT RESTRAINED WITH EOC DEVICES. NV WNL. WILL CONTINUE TO MONITOR AND FOLLOW POC.
--- NOTE | 2023-02-02 05:50 | NUR ---
NOTIFIED PROVIDER PT WITH DESAT ON RA MILDLY TACHYPNEIC. CONTINUES WITH PINK TINGED MILAN SPUTUM WITH FREQUENT COUGH. PT PLACED ON 2L 02 VIA NC. PROVIDER STATES HE WILL ORDER CXR NOW AND F/U WITH CHEST CT IN AM. WILL CONTINUE CLOSE MONITORING AND FOLLOW POC.
--- NOTE | 2023-02-02 05:55 | NUR ---
REQUESTED BY PRIMARY RN AYSHA TO ASSIST WITH PLACING STAT SINGLE VIEW CHEST X-RAY AFTER SHE SPOKE WITH MD-SEE PRIMARY RN'S NOTE FOR DETAILS.
--- NOTE | 2023-02-02 06:46 | NUR ---
THIS RN TO ROOM TO ASSIST WITH IV START. 20G IV STARTED TO PTS RIGHT HAND PER PROTOCOL. BRISK BLOOD RETURN NOTED. IV FLUIDS AND MEDICATION RESTARTED TO THIS SITE BY MARCIAL OLMSTEAD. PT TOLERATED PROCEEDURE WELL. NO ADDITIONAL REQUESTS OR COMPLAINTS. PTS PRAIMARY RN AT BEDSIDE. CALL LIGTH WITHIN REACH. OFFICERS AT BEDSIDE.
--- NOTE | 2023-02-02 07:49 | NUR ---
PT RESTING IN BED AT TIME OF SHIFT REPORT QUIET ALERT GAURDS PRESENT X2. FRESH H2O TO BEDSIDE CALL LIGHT IN REACH. PT DENIES NEEDS OR DISCOMFORTS
--- NOTE | 2023-02-02 09:50 | NUR ---
PT TOLERATES 100% OF MORNING MEAL. AGREES HE IS COMFORTABLE. ALANIS CALLS STATING PT HAVING A HARD TIME BREATHING. PT HAS A COUGHING FIT PRODUCES A LARGE AMOUNT OF SPUTUM BREATHING IS LABORED HR IS ELEVATED. 02 APPLIED, PT INSTRUCTED TO BREATH THROUGH HIS NOSE. SATS 93% PT RECOVERS QUICKLY SATS TO 95% PT STATES THE RATTLE HE HEARD IN HIS LUNGS CLEARED WITH THE SPUTUM PRODUCTION. AGREES HE FEELS MUCH BETTER
--- NOTE | 2023-02-02 11:00 | NUR ---
PT UP OUT OF BED TO THE CHAIR USES TRUMPET WITH ENCOURAGEMENT
--- NOTE | 2023-02-02 14:49 | NUR ---
DR LINDSEY IN TO SEE PT PLAN GOING FORWARD DISCUSSED ALL QUESTIONS ANSWERED
--- NOTE | 2023-02-02 15:04 | NUR ---
PATIENT IN CHAIR AFTER MEAL. VITALS AND I/O'S COMPLETED. GUARDS IN ROOM. CALL LIGHT WITHIN REACH.
--- NOTE | 2023-02-02 15:55 | NUR ---
PT TO TRANSFER TO HIGHER LEVEL OF CARE. PAIN MED GIVEN IN ANTICIPATION OF TRAVEL. ALL QUESTIONS ANSWERED
== END 2023-02-02 16:10 | disposition short-term general hospital (02) | DRG 871 ==
LOC: ED 03:12 → CCU 08:06 → MS 01-29 11:20
PROVIDERS: ADMIT Family Medicine; ATTEND Family Medicine
PROC: 3E03329 Introduction of Other Anti-infective into Peripheral Vein, Percutaneous Approach (ICD-10-PCS; principal; 2023-01-22)
PROC: 0W9900Z Drainage of Right Pleural Cavity with Drainage Device, Open Approach (ICD-10-PCS; 2023-01-28)
DX: A41.9 Sepsis, unspecified organism (principal); J85.0 Gangrene and necrosis of lung; J96.01 Acute respiratory failure with hypoxia; J85.1 Abscess of lung with pneumonia; K72.00 Acute and subacute hepatic failure without coma; J94.8 Other specified pleural conditions; J44.1 Chronic obstructive pulmonary disease with (acute) exacerbation; N17.9 Acute kidney failure, unspecified; J95.812 Postprocedural air leak; Z20.822 Contact with and (suspected) exposure to COVID-19; I48.0 Paroxysmal atrial fibrillation; R65.20 Severe sepsis without septic shock; E11.65 Type 2 diabetes mellitus with hyperglycemia; K80.20 Calculus of gallbladder without cholecystitis without obstruction; R91.1 Solitary pulmonary nodule; K21.9 Gastro-esophageal reflux disease without esophagitis; R07.89 Other chest pain; E78.5 Hyperlipidemia, unspecified; Z87.891 Personal history of nicotine dependence; Z98.890 Other specified postprocedural states; Z87.01 Personal history of pneumonia (recurrent); Z86.14 Personal history of Methicillin resistant Staphylococcus aureus infection; Z88.5 Allergy status to narcotic agent; Z88.8 Allergy status to other drugs, medicaments and biological substances; Z79.2 Long term (current) use of antibiotics; Z79.84 Long term (current) use of oral hypoglycemic drugs; Z79.899 Other long term (current) drug therapy; Y83.1 Surgical operation with implant of artificial internal device as the cause of abnormal reaction of the patient, or of later complication, without mention of misadventure at the time of the procedure
CPT/HCPCS: 36415; 36600; 71045; 71260; 80048; 80053; 80076; 80202; 81001; 82803; 83036; 83605; 83735; 83880; 84100; 84484; 85025; 85379; 87040; 87070; 87205; 87449; 87502; 87899; 93005; 93010; 94640; 94660; 94668; 94760; 94799; A9270; C9803; J0456; J0696; J1650; J1815; J1885; J1940; J2250; J2270; J2543; J2920; J2930; J3010; J3370; J3475; J3480; J3490; J7030; J7060; J7121; Q9967; U0003

== ENCOUNTER 2023-02-27 17:05 | Emergency (ER) | payer OTHER ==
[~2023-02-27] VITALS: Ht 170.2 cm; Wt 82.1 kg
[~2023-02-27 17:05] MED LIST changes: +COZAAR50 MG PO; +CRESTOR20 MG PO; +FENOFIBRATE145 MG PO; +LIDOCAINE35.44 GM TOP; +MELATONIN1 MG PO; +METFORMIN HCL1000 M1 PO; +NASACORT10.8 ML NAS; +POTASSIUM CHLO10 MEQ PO; +VENTOLIN HFA18 GM INH; +VITAMIN D325 MC2 PO
[2023-02-27] MEDS ORDERED: FENOFIBRATE145 MG PO (19:00)
[2023-02-27] MEDS ORDERED: METFORMIN HCL500 M2 PO (19:00)
[2023-02-27] MEDS ORDERED: HYDROCODON-ACE1 EA10 PO ×2 (19:02→22:08)
[2023-02-27] MEDS ORDERED: AMOX TR-K CLV1 EAC1 PO (22:08)
== END 2023-02-27 22:30 | disposition home or self-care (01) ==
LOC: ED 17:05
DX: T81.41XA Infection following a procedure, superficial incisional surgical site, initial encounter (principal); E11.9 Type 2 diabetes mellitus without complications; I10 Essential (primary) hypertension; E78.5 Hyperlipidemia, unspecified; K21.9 Gastro-esophageal reflux disease without esophagitis; Z87.891 Personal history of nicotine dependence; Z88.8 Allergy status to other drugs, medicaments and biological substances; Z88.5 Allergy status to narcotic agent; Z79.899 Other long term (current) drug therapy; Z79.84 Long term (current) use of oral hypoglycemic drugs
CPT/HCPCS: 36415; 71045; 71260; 80053; 85025; 96375; 99284-25; A9270; J0690; J1170; J2405; Q9967